=== PATIENT | male | born 1960 | race Caucasian/White ===

== ENCOUNTER 2019-09-16 07:39 | Emergency (ER) | payer BC ==
[~2019-09-16] VITALS: Ht 172.7 cm; Wt 68.0 kg
[2019-09-16 07:47] VITALS: BP_SYST 145
--- NOTE | 2019-09-16 07:52 | NUR ---
Patient to ER bed 7 to gown for evaluation. Side rails up. Report given to Henry HUYNH.
--- NOTE | 2019-09-16 08:15 | NUR ---
ER Dr. Medina at bedside examining patient.
--- NOTE | 2019-09-16 08:18 | NUR ---
Patient is awake, alert, and oriented x4. Patient is complaining of bleeding nose since this morning that will not stop. Patient reports that he clamps it and it usually stops within a few minutes. Patient presents with clamp to his nose, he denies any other problems at this time.
[2019-09-16 08:19] VITALS: BP_SYST 145
[2019-09-16 08:45] LABS: BASOPHILS # (AUTO) 0.1 K/uL (0.0-0.2); BASOPHILS % (AUTO) 1.4 % (0.0-2.0); EOSINOPHILS % (AUTO) 0.3 % (0.0-4.0); HEMATOCRIT 41.1 % (36-54); HEMOGLOBIN 13.8 g/dL (14.0-18.0); LYMPHOCYTES # (AUTO) 1.4 K/uL (1.0-5.5); LYMPHOCYTES % (AUTO) 27.4 % (20.5-51.5); MEAN CORPUSCULAR HEMOGLOBIN 35 pg (27-31); MEAN CORPUSCULAR HGB CONC 34 % (32-36); MEAN CORPUSCULAR VOLUME 104 fL (79.0-98.0); MONOCYTES # (AUTO) 0.5 K/uL (0.0-1.0); MONOCYTES % (AUTO) 9.3 % (1.7-9.3); NEUTROPHILS # (AUTO) 3.1 K/uL (1.8-7.7); NEUTROPHILS % (AUTO) 61.6 % (40.0-70.0); PLATELET COUNT (AUTO) 241 K/uL (130-430); RED BLOOD CELL COUNT(AUTO) 3.96 MIL/uL (4.2-6.2); RED CELL DISTRIBUTION WIDTH 16.2 % (9.0-15.0)
[2019-09-16] MEDS ORDERED: TRANEXAMIC ACID 1,000 MG/10 ML VIAL IV ONE (08:45)
[2019-09-16 08:59] LABS: CALCIUM 8.6 mg/dL (8.4-11.0); CREATININE 0.79 mg/dL (0.55-1.30); POTASSIUM 4.1 mmol/L (3.5-5.1)
[2019-09-16 09:10] LABS: ALBUMIN 3.7 g/dL (3.4-4.8); TOTAL BILIRUBIN 0.7 mg/dL (0.0-1.0)
--- NOTE | 2019-09-16 09:30 | NUR ---
Pharmacy called for transexemic acid. Nba notifed and stated he would put more in the pyxis.
--- NOTE | 2019-09-16 09:50 | NUR ---
Patient given written and verbal discharge instructions and verbalizes understanding. ER MD discussed with patient the results and treatment provided. Patient in stable condition. ID arm band removed. Patient educated on pain management and to follow up with PMD. Pain Scale 0/10. Opportunity for questions provided and answered. Medication side effect fact sheet provided.
== END 2019-09-16 09:50 | disposition home or self-care (01) ==
LOC: SED 07:39
DX: R04.0 Epistaxis (principal)
CPT/HCPCS: 30903; 36415; 80053; 85025; 99284; J3490

== ENCOUNTER 2021-06-17 08:31 | Inpatient (IN) | payer BC, SELFPAY ==
[~2021-06-17] VITALS: Ht 172.7 cm; Wt 61.2 kg
[2021-06-17 08:41] VITALS: BP_SYST 147
[2021-06-17] MEDS ORDERED: NACL 0.9% 1,000 ML IV ONE (09:00)
[2021-06-17] MEDS ORDERED: LORazepam 2 MG/ML VIAL IVP ONE (09:00)
--- NOTE | 2021-06-17 09:00 | NUR ---
# 20gauge angiocath placed to SANDRA. Use of asceptic technique. Opsite placed over site. Blood return noted. Blood for lab drawn from site. Flushed with 10 cc of normal saline. No evidence of infiltration noted. Patient tolerated well.
--- NOTE | 2021-06-17 09:00 | NUR ---
Patient to ER bed 6 to gown for evaluation. Side rails up. Report given to Russell
--- NOTE | 2021-06-17 09:03 | NUR ---
Radiology at bedside for CXR
--- NOTE | 2021-06-17 09:05 | NUR ---
Pt came to ER via BLS ambulance for anxiety, hallucinations, ETOH withdrawls. Pt presents tachycardic, anixious, VSS, awaiting
--- NOTE | 2021-06-17 09:10 | NUR ---
ER at bedside examining patient.
[2021-06-17 09:16] LABS: BASOPHILS % (AUTO) 0.9 % (0.0-2.0); EOSINOPHILS % (AUTO) 0.6 % (0.0-4.0); HEMATOCRIT 39.9 % (36-54); HEMOGLOBIN 13.6 g/dL (14.0-18.0); LYMPHOCYTES # (AUTO) 1.5 K/uL (1.0-5.5); LYMPHOCYTES % (AUTO) 27.7 % (20.5-51.5); MEAN CORPUSCULAR HEMOGLOBIN 37 pg (27-31); MEAN CORPUSCULAR HGB CONC 34 % (32-36); MEAN CORPUSCULAR VOLUME 108 fL (79.0-98.0); MONOCYTES # (AUTO) 0.5 K/uL (0.0-1.0); MONOCYTES % (AUTO) 8.9 % (1.7-9.3); NEUTROPHILS # (AUTO) 3.3 K/uL (1.8-7.7); NEUTROPHILS % (AUTO) 61.9 % (40.0-70.0); PLATELET COUNT (AUTO) 126 K/uL (130-430); RED BLOOD CELL COUNT(AUTO) 3.69 MIL/uL (4.2-6.2); RED CELL DISTRIBUTION WIDTH 17.1 % (9.0-15.0); WHITE BLOOD COUNT (AUTO) 5.3 K/uL (4.8-10.8)
[2021-06-17 09:21] LABS: ANION GAP 26 (5-15); CALCIUM 9.3 mg/dL (8.4-11.0); CHLORIDE 97 mmol/L (98-107); CREATININE 1.46 mg/dL (0.55-1.30); GLUCOSE 121 mg/dL (70-99); SODIUM SERUM 140 mmol/L (136-145); UREA NITROGEN, BLOOD 12 mg/dL (8-21)
[2021-06-17 09:22] LABS: GFR AFRICAN AMERICAN 63 mL/min (>90)
[2021-06-17 09:36] LABS: ALBUMIN 4.1 g/dL (3.4-4.8); ASPARTATE AMINOTRANSFERASE 94 U/L (10-37)
[2021-06-17 09:54] LABS: ALANINE AMINOTRANSFERASE 125 U/L (12-78)
[2021-06-17 10:07] LABS: ALCOHOL, BLOOD < 3 mg/dL (<10)
--- NOTE | 2021-06-17 11:00 | NUR ---
Pt eating at this time, resting
--- NOTE | 2021-06-17 11:01 | NUR ---
Notified ED Admitting to contact pt insurance regarding pt status and that per Dr. Medina pt is NOT stable for transfer and will be admitted to the multifocal button generator hospitalist per facesheet: on license of [facility] pcp not on staff
--- NOTE | 2021-06-17 11:06 | NUR ---
Jeffery assistant case manager called back to get info regarding pt. stated another assistant case manager will follow up on pt spoke to elizabeth
--- NOTE | 2021-06-17 11:11 | NUR ---
Per Dr. Medina, after speaking with the insurance Doctor regarding pt status, they both agreed on admitting pt at this facility.
[2021-06-17] MEDS: D5NS 1,000 ML IV SCH (11:15)
[2021-06-17] MEDS ORDERED: POTASSIUM CHLORIDE 20 MEQ TAB.PRT.SR PO ONE (11:15)
--- NOTE | 2021-06-17 11:24 | NUR ---
DR MULLIGAN HERE TO EVALUATE PT.
[2021-06-17] MEDS ORDERED: MUPIROCIN 2% TOPICAL OINTMENT 22 GM NS PRN (11:30)
[2021-06-17] MEDS ORDERED: NALOXONE HCL 0.4 MG/ML AMP (NARCAN) IVP PRN ×2 (11:30→19:48)
[2021-06-17] MEDS ORDERED: THIAMINE HCL 100 MG in NS 50 ML IV ONE (11:30)
[2021-06-17] MEDS ORDERED: LORazepam 2 MG/ML VIAL IVP PRN ×2 (11:30→18:15)
[2021-06-17 12:03] LABS: PROTHROMBIN TIME 10.4 SECS (9.5-12.5)
--- NOTE | 2021-06-17 15:25 | NUR ---
Unable to document on emar, as per order from Dr. Cardona, 2mg Ativan IVP q 4hrs, given at 1525. Last dose was given 06/17/2021 at 0902.
[2021-06-17] MEDS ORDERED: LORazepam 2 MG/ML VIAL ONE ×2 (15:28→17:43)
--- NOTE | 2021-06-17 16:05 | NUR ---
Pt tolerated medication, resting in gurney, VSS, pt states visual hallucinations present
--- NOTE | 2021-06-17 17:25 | NUR ---
Unable to document on EMAR, as per order from Dr. Cardona, 2mg Morphine IVP q 4hrs, given at 1725. First dose administered.
[2021-06-17] MEDS ORDERED: MORPHINE 2 MG/ML INJ. SYRINGE ONE (17:31)
--- NOTE | 2021-06-17 17:50 | NUR ---
Pt agitated and aggressive called admitting MD. Received verbal order from Dr Cardona for Ativan 2mg q3hPRN for agitation and anxiety, begin first dose now.
--- NOTE | 2021-06-17 18:26 | NUR ---
Pt resting more comfortably in [facility] at this time
[2021-06-17] MEDS ORDERED: HALOPERIDOL LACTATE 5 MG/ML VIAL IM ONE (19:00)
--- NOTE | 2021-06-17 19:06 | NUR ---
Received endorsment from day shift, AAOX3, mild combative, breathing spontaneously at room air, not in distress noted, with soft restraints 4 points at bilateral upper/lower limb noted. With ongoing IV fluid D5 NS at 150ml/hour infusing at left forearm, g20 IV cannula noted. Vital signs taken and recorded, tachycardic HR-113bpm.
[2021-06-17] MEDS ORDERED: MORPHINE 2 MG/ML INJ. SYRINGE IVP PRN ×2 (19:45→19:46)
--- NOTE | 2021-06-17 19:45 | NUR ---
Patient's code status is FULL CODE, paperwork completed and placed in chart.
[2021-06-17] MEDS ORDERED: ACETAMINOPHEN 325 MG TABLET PO PRN (19:46)
[2021-06-17] MEDS ORDERED: DOCUSATE SODIUM 100 MG CAPSULE PO PRN (19:46)
[2021-06-17] MEDS ORDERED: ZOLPIDEM TARTRATE 5 MG TABLET PO PRN (19:47)
[2021-06-17] MEDS ORDERED: ONDANSETRON HCL 4 MG/2 ML VIAL IVP PRN (19:47)
[2021-06-17] MEDS ORDERED: MAGNESIUM SULFATE 50 ML IV PRN (19:48)
[2021-06-17] MEDS ORDERED: FOLIC ACID 1 MG, THIAMINE HCL 100 MG, MAGNESIUM SULFATE 1 GM, MVI 10 ML in NACL 0.9% 1,... IV ONE (19:50)
--- NOTE | 2021-06-17 19:55 | NUR ---
Admission medication unverified status since in AM, pharmacy contacted by the charge nurse to verify.
[2021-06-17] MEDS ORDERED: MAGNESIUM SULFATE 1 GM/2 ML VIAL ONE (20:31)
[2021-06-17] MEDS ORDERED: MVI 10 ML VIAL IV ONE (20:31)
[2021-06-17] MEDS ORDERED: THIAMINE HCL 100 MG/ML VIAL ONE (20:31)
[2021-06-17] MEDS ORDERED: FOLIC ACID 5 MG/ML VIAL IV ONE (20:31)
--- NOTE | 2021-06-17 20:40 | NUR ---
Compound multivitamin IV infusion, bag unable to scan, manually input in EMR
--- NOTE | 2021-06-17 20:50 | NUR ---
Medication reconciliation not done, patient cam\nnot give details if he is taking any nmedication medication
--- NOTE | 2021-06-17 20:52 | NUR ---
Transfer to TElemetry 104A via ACLS protocol. Licensed nurse present. IV present no signs or symptoms of infiltration.
[2021-06-17] MEDS ORDERED: HEPARIN SODIUM,PORCINE 5,000 UNITS/ML VIAL SUBCUT SCH (21:00)
--- NOTE | 2021-06-17 21:15 | NUR ---
Endorsed to AMINA Flowers in stable condition for continuity of care
[2021-06-17 21:20] VITALS: BP_SYST 121
--- NOTE | 2021-06-17 21:20 | NUR ---
ROUNDS PATIENT IN BED, LETHARGIC, AROUSABLE TO NAME, NOT IN DISTRESS, VITALS STABLE. ASSESSMENT DONE AND DOCUMENTED. SEE FLOWSHEET. PATIENT ON BILATERAL SOFT WRIST RESTRAINTS, WITH GOOD PULSES. NEEDS ATTENDED TO. SAFETY AND FALL MEASURES IN PLACED. BED IN LOW AND LOCKED POSITION. CALL LIGHT PLACED WITHIN REACH.
[2021-06-17] MEDS: chlordiazePOXIDE HCL 25 MG CAPSULE PO SCH (23:56)
--- NOTE | 2021-06-18 00:13 | NUR ---
PATIENT RESTING: Patient resting quietly. No acute distress noted. Vital signs within normal range.
[2021-06-18] MEDS: D5NS 1,000 ML IV SCH ×5 (00:35→21:33)
[2021-06-18 01:31] VITALS: BP_SYST 127
[2021-06-18] MEDS: chlordiazePOXIDE HCL 25 MG CAPSULE PO SCH ×4 (05:50→23:29)
--- NOTE | 2021-06-18 05:59 | NUR ---
CONSULT REASON FOR CONSULT: ALCOHOL DEP PERSON I SPOKE WITH: CANDIDO CONSULTING PHYSICIAN: DR. HUMPHREYS DIRECTOR BUSINESS DEVELOPMENT PHONE NUMBER: [phone] ORDERING PHYSICIAN: DR. MULLIGAN
--- NOTE | 2021-06-18 06:33 | NUR ---
ATTENDING MD DR MULLIGAN WAS CALLED DIRECTLY, RE: DIET ORDER.
--- NOTE | 2021-06-18 06:37 | NUR ---
CLOSING NOTES PATIENT STILL ASLEEP, VITALS STABLE, NO SIGNS OF ANY PAIN AT THIS TIME. ALL NEEDS ATTENDED TO. SAFETY MEASURES MAINTAINED. CALL LIGHT PLACED WITHIN REACH.
[2021-06-18 07:05] LABS: BASOPHILS % (AUTO) 0.9 % (0.0-2.0); EOSINOPHILS # (AUTO) 0.1 K/uL (0.0-0.4); EOSINOPHILS % (AUTO) 3.2 % (0.0-4.0); HEMATOCRIT 34.8 % (36-54); HEMOGLOBIN 11.9 g/dL (14.0-18.0); LYMPHOCYTES # (AUTO) 1.2 K/uL (1.0-5.5); LYMPHOCYTES % (AUTO) 28.3 % (20.5-51.5); MEAN CORPUSCULAR HEMOGLOBIN 37 pg (27-31); MEAN CORPUSCULAR HGB CONC 34 % (32-36); MEAN CORPUSCULAR VOLUME 108 fL (79.0-98.0); MONOCYTES # (AUTO) 0.4 K/uL (0.0-1.0); MONOCYTES % (AUTO) 9.4 % (1.7-9.3); NEUTROPHILS # (AUTO) 2.5 K/uL (1.8-7.7); NEUTROPHILS % (AUTO) 58.2 % (40.0-70.0); PLATELET COUNT (AUTO) 101 K/uL (130-430); RED BLOOD CELL COUNT(AUTO) 3.21 MIL/uL (4.2-6.2); WHITE BLOOD COUNT (AUTO) 4.3 K/uL (4.8-10.8)
[2021-06-18 07:22] LABS: ALBUMIN 3.2 g/dL (3.4-4.8); BILIRUBIN,DIRECT 0.4 mg/dL (0.0-0.3); CALCIUM 7.7 mg/dL (8.4-11.0); CREATININE 0.65 mg/dL (0.55-1.30); TOTAL BILIRUBIN 1.4 mg/dL (0.0-1.0)
--- NOTE | 2021-06-18 07:50 | NUR ---
OPENING NOTE Patient is resting in bed A&O x4, no complain of pain or discomfort, no signs or symptoms of respiratory distress. Patient is currently on restraints, will update MD on patients current status for possible D/C of restraints. Educated patient applications scientist light system and plan of care, patient verbalized understanding. bed is in lowest position call light within reach, fall and aspiration precautions are in place, will continue to monitor.
[2021-06-18 07:57] LABS: RED CELL DISTRIBUTION WIDTH 16.7 % (9.0-15.0)
[2021-06-18 08:08] VITALS: BP_SYST 139
[2021-06-18 08:21] LABS: POTASSIUM 2.9 mmol/L (3.5-5.1)
[2021-06-18] MEDS: POTASSIUM CHLORIDE 20 MEQ TAB.PRT.SR PO PRN (08:41)
--- NOTE | 2021-06-18 10:00 | NUR ---
RN note spoke with MD regarding patients current status, MD is OK with restraints being D/C'd. Will continue to monitor patient.
--- NOTE | 2021-06-18 10:36 | NUR ---
Nutrition Update Aime Scale 17 noted. Pt admitted for delirium tremors. Diet: regular BMI: 20.6 kg/m2 RD to follow per nutrition care standards.
--- NOTE | 2021-06-18 10:43 | NUR ---
MAMADOU note: updated clinicals to MAMADOU Vega /[facility] tel # [phone], fax # [phone]. Per Silvia, no transfer to [facility] work today but will continue to reevaluate. She provided inpatient psych facility if needed. [phone], fax # [phone].
[2021-06-18 11:18] VITALS: BP_SYST 125
--- NOTE | 2021-06-18 14:34 | NUR ---
RN note Patient able to ambulate to the restroom independently, steady gait.
[2021-06-18 16:19] VITALS: BP_SYST 130
--- NOTE | 2021-06-18 18:02 | NUR ---
Dietitian Recommendations * Recommend: continue regular diet. * Encourage continue good PO intake. LP, RD Please refer to Nutrition Assessment for details. Addendum: 06/18/21 at 1803 by Tono CASTELLANOS Amended: Links added.
--- NOTE | 2021-06-18 18:16 | NUR ---
CLOSING NOTE Patient is resting in bed A&O x4, no complain of pain or discomfort, no signs or symptoms of respiratory distress. IV is infusing no sign or symptoms of infiltration. All needs were met bed is in lowest position call light within reach, fall and aspiration precautions are in place, will endorse report to night time babysitter.
--- NOTE | 2021-06-18 19:30 | NUR ---
Opening notes Received report. Patient is resting in bed, no signs of distress noted. Breathing even and unlabored on room air. Tremors noted. IVF infusing well. No needs at this time. call light with the patient. Safety precautions in place.
[2021-06-18 20:00] VITALS: BP_SYST 131
[2021-06-18] MEDS ORDERED: chlordiazePOXIDE HCL 10 MG CAPSULE ONE (23:31)
[2021-06-19] VITALS: BP_SYST 165
--- NOTE | 2021-06-19 02:00 | NUR ---
RN rounds Patient able to walk to bathroom with minimal assistance. Standby assist. Patient has tremors. No needs at this time. Call light with the patient. safety precautions in place.
[2021-06-19] MEDS: D5NS 1,000 ML IV SCH ×2 (04:15→09:04)
[2021-06-19] MEDS: chlordiazePOXIDE HCL 25 MG CAPSULE PO SCH (05:57)
[2021-06-19] MEDS ORDERED: chlordiazePOXIDE HCL 10 MG CAPSULE ONE (05:58)
--- NOTE | 2021-06-19 06:26 | NUR ---
Closing notes Patient is resting in bed, no signs of distress noted. Breathing even and unlabored on room air. Patient still with tremors. IVF infusing well. All needs met throughout the shift. Call light with the patient. Safety precautions in place.
[2021-06-19 07:41] VITALS: BP_SYST 137
[2021-06-19 07:51] LABS: BASOPHILS % (AUTO) 0.8 % (0.0-2.0); EOSINOPHILS # (AUTO) 0.1 K/uL (0.0-0.4); EOSINOPHILS % (AUTO) 2.6 % (0.0-4.0); HEMATOCRIT 33.9 % (36-54); HEMOGLOBIN 11.7 g/dL (14.0-18.0); LYMPHOCYTES # (AUTO) 1.6 K/uL (1.0-5.5); MEAN CORPUSCULAR HEMOGLOBIN 38 pg (27-31); MEAN CORPUSCULAR HGB CONC 35 % (32-36); MEAN CORPUSCULAR VOLUME 109 fL (79.0-98.0); MONOCYTES # (AUTO) 0.5 K/uL (0.0-1.0); MONOCYTES % (AUTO) 8.9 % (1.7-9.3); NEUTROPHILS # (AUTO) 3.2 K/uL (1.8-7.7); NEUTROPHILS % (AUTO) 58.7 % (40.0-70.0); PLATELET COUNT (AUTO) 103 K/uL (130-430); RED BLOOD CELL COUNT(AUTO) 3.12 MIL/uL (4.2-6.2); RED CELL DISTRIBUTION WIDTH 16.7 % (9.0-15.0); WHITE BLOOD COUNT (AUTO) 5.4 K/uL (4.8-10.8)
--- NOTE | 2021-06-19 08:00 | NUR ---
OPENING NOTES PATIENT AAO X 4. LUNGS CLEAR. ABDOMEN SOFT AND NON DISTENDED. HAS IV ACCESS ON THE LEFT FOREARM #20 NS AT 150CC/HR INFUSING ON WELL. HAS OPTIFOAM DRESSING ON LEFT HAND WITH SKIN TEAR. BED LOW POSITION, ALARMED AND LOCKED. CALL LIGHTS WITHIN REACH. WILL CONTINUE TO MONITOR PATIENTS STATUS.
[2021-06-19 08:21] LABS: CALCIUM 8.4 mg/dL (8.4-11.0); CREATININE 0.68 mg/dL (0.55-1.30)
[2021-06-19 08:38] LABS: POTASSIUM 2.9 mmol/L (3.5-5.1)
[2021-06-19] MEDS: POTASSIUM CHLORIDE 20 MEQ TAB.PRT.SR PO PRN (08:51)
--- NOTE | 2021-06-19 08:53 | NUR ---
POTASSIUM 40 MEQ TABLET GIVEN. K LEVEL 2.9. MAGNESIUM LEVEL 1.3 MAGNESIUM IV GIVEN.
[2021-06-19] MEDS ORDERED: POTASSIUM CHLORIDE 20 MEQ TAB.PRT.SR PO ONE (09:00)
[2021-06-19] MEDS ORDERED: MAGNESIUM OXIDE 400 MG TABLET PO ONE (09:00)
--- NOTE | 2021-06-19 11:00 | NUR ---
PATIENT REFUSED TO CHANGED THE DRESSING ON THE LEFT HAND FOR THE SKIN TEAR. NO PHOTO TAKEN.
[2021-06-19 11:46] VITALS: BP_SYST 137
[2021-06-19] MEDS ORDERED: chlordiazePOXIDE HCL 10 MG CAPSULE PO SCH (12:00)
[2021-06-19] MEDS ORDERED: LIB25 PO (12:33)
[2021-06-19 12:45] VITALS: BP_SYST 137
--- NOTE | 2021-06-19 14:15 | NUR ---
PATIENT LEFT IN STABLE CONDITION. [facility] I D BAND REMOVED. AND IV ACCESS REMOVED. DISCHARGE INSTRUCTION GIVEN FOR FOLLOW UP IN [facility], AFTER HOME WILL GO THE REHAB CENTER. FOLLOW UP WITH PRIMARY MD IN ONE TO TWO WEEKS. PRESCRIPTION GIVEN TO THE PATIENT TO PICK AT [employer]. LIBRIUM TABLET INDICATION, SIDE EFFECTS, DOSAGE AND FREQUENCY. 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 NO COMPLAINED MADE SO FAR. ONLY BELONGING HE HAS CELLPHONE, NO AUTOMOBILE LIGHTS ASSEMBLER, HAS ORANGE HAT AND TSHIRT AND PANTS.
[2021-06-19 18:26] VITALS: BP_SYST 136
--- NOTE | 2021-06-20 10:34 | NUR ---
Disposition 01
== END 2021-06-19 14:15 | disposition home or self-care (01) | DRG 896 ==
LOC: SED 08:31 → STU 11:06
PROVIDERS: ADMIT General Practice; ATTEND General Practice
DX: F10.231 Alcohol dependence with withdrawal delirium (principal); N17.0 Acute kidney failure with tubular necrosis; R65.10 Systemic inflammatory response syndrome (SIRS) of non-infectious origin without acute organ dysfunction; E87.6 Hypokalemia; Z20.822 Contact with and (suspected) exposure to COVID-19; R74.01 Elevation of levels of liver transaminase levels; D69.6 Thrombocytopenia, unspecified; K76.0 Fatty (change of) liver, not elsewhere classified; Z71.41 Alcohol abuse counseling and surveillance of alcoholic; Z90.49 Acquired absence of other specified parts of digestive tract
CPT/HCPCS: 36415; 70450-TC; 71045; 76376; 76700-TC; 80048; 80053; 80076; 83036; 83735; 84484; 85025; 85610-TC; 93005; 96361; 96365; 96366; 96372; 96375; 99291; 99292; G0378; G0482; J1630; J2060; J2270; J3411; J3475; J3490

== ENCOUNTER 2021-10-05 08:24 | Emergency (ER) | payer BC, SELFPAY ==
[~2021-10-05] VITALS: Ht 172.7 cm; Wt 65.8 kg
[~2021-10-05 08:24] MED LIST: LIB25 PO
--- NOTE | 2021-10-05 08:55 | NUR ---
Patient to ER bed 1 to gown for evaluation. Side rails up. Report given to TAWNYA HUYNH.
--- NOTE | 2021-10-05 08:56 | NUR ---
ER at bedside examining patient.
[2021-10-05] MEDS ORDERED: NACL 0.9% 1,000 ML IV ONE (09:00)
[2021-10-05] MEDS ORDERED: LORazepam 2 MG/ML VIAL IVP ONE (09:00)
[2021-10-05] MEDS ORDERED: ONDANSETRON HCL 4 MG/2 ML VIAL IVP ONE (09:00)
--- NOTE | 2021-10-05 09:00 | NUR ---
# 20 gauge angiocath placed to LFA. Use of asceptic technique. Opsite placed over site. Blood return noted. Blood for lab drawn from site. Flushed with 10 cc of normal saline. No evidence of infiltration noted. Patient tolerated well.
--- NOTE | 2021-10-05 09:04 | NUR ---
PT BIBA AMBULANCE FROM HOME C/O NAUSEA AND SHAKING. PT STATES HE HAS BEEN DRINKING TOO MUCH ALCOHOL OVER THE LAST FEW MONTHS. STATES HE DRINKS 10 SHOTS OF VODKA PER DAY. PRESENTS TREMULOUS AND FLUSHED. AAOX4, HYPERTENSIVE 162/102 PULSE 102, OTHER V/S STABLE. DENIES PAIN.
[2021-10-05 09:17] LABS: BASOPHILS # (AUTO) 0.1 K/uL (0.0-0.2); BASOPHILS % (AUTO) 1.8 % (0.0-2.0); EOSINOPHILS % (AUTO) 0.2 % (0.0-4.0); HEMATOCRIT 38.7 % (36-54); HEMOGLOBIN 13.3 g/dL (14.0-18.0); LYMPHOCYTES # (AUTO) 1.1 K/uL (1.0-5.5); LYMPHOCYTES % (AUTO) 23.4 % (20.5-51.5); MEAN CORPUSCULAR HEMOGLOBIN 32 pg (27-31); MEAN CORPUSCULAR HGB CONC 34 % (32-36); MEAN CORPUSCULAR VOLUME 94 fL (79.0-98.0); MONOCYTES # (AUTO) 0.5 K/uL (0.0-1.0); MONOCYTES % (AUTO) 9.8 % (1.7-9.3); NEUTROPHILS # (AUTO) 3.1 K/uL (1.8-7.7); NEUTROPHILS % (AUTO) 64.8 % (40.0-70.0); PLATELET COUNT (AUTO) 158 K/uL (130-430); RED BLOOD CELL COUNT(AUTO) 4.13 MIL/uL (4.2-6.2); RED CELL DISTRIBUTION WIDTH 16.7 % (9.0-15.0); WHITE BLOOD COUNT (AUTO) 4.7 K/uL (4.8-10.8)
[2021-10-05 09:28] LABS: ANION GAP 15 (5-15); CALCIUM 9.1 mg/dL (8.4-11.0); CHLORIDE 96 mmol/L (98-107); CREATININE 1.11 mg/dL (0.55-1.30); GLUCOSE 132 mg/dL (70-99); POTASSIUM 3.6 mmol/L (3.5-5.1); SODIUM SERUM 134 mmol/L (136-145); UREA NITROGEN, BLOOD 13 mg/dL (8-21)
[2021-10-05 09:29] LABS: GFR AFRICAN AMERICAN 86 mL/min (>90)
[2021-10-05 09:34] LABS: ALANINE AMINOTRANSFERASE 227 U/L (12-78); ALBUMIN 3.9 g/dL (3.4-4.8); ASPARTATE AMINOTRANSFERASE 180 U/L (10-37); TOTAL BILIRUBIN 0.7 mg/dL (0.0-1.0)
[2021-10-05 09:35] LABS: ALCOHOL, BLOOD < 3 mg/dL (<10)
--- NOTE | 2021-10-05 09:50 | NUR ---
PT RESTING IN BED, EASILY ARROUSABLE, EVEN UNLABORED BREATHING, NO DISTRESS NOTED.
[2021-10-05] MEDS ORDERED: LORA-259 PO (10:09)
[2021-10-05 10:17] VITALS: BP_SYST 136
--- NOTE | 2021-10-05 10:18 | NUR ---
Patient given written and verbal discharge instructions and verbalizes understanding. ER MD discussed with patient the results and treatment provided. Patient in stable condition. ID arm band removed. IV catheter removed intact and dressing applied, no active bleeding. Rx of ATIVAN given. Patient educated on pain management and to follow up with PMD. Pain Scale 0/10. Opportunity for questions provided and answered. Medication side effect fact sheet provided.
== END 2021-10-05 10:17 | disposition home or self-care (01) ==
LOC: SED 08:24
DX: F10.239 Alcohol dependence with withdrawal, unspecified (principal); Z79.899 Other long term (current) drug therapy; Y90.0 Blood alcohol level of less than 20 mg/100 ml
CPT/HCPCS: 36415; 80053; 85025; 96361; 96374; 96375; 99284; G0482; J2060; J2405; J7030

== ENCOUNTER → 2021-12-09 | Emergency (ER) | payer BC ==
[~2021-12-09] MED LIST changes: +FOLIC ACID 1 MG, THIAMINE HCL 100 MG, MAGNESIUM SULFATE 1 GM, MVI 10 ML in NACL 0.9% 1,... IV ONE; +FOLIC ACID 5 MG/ML VIAL IV ONE; +LORA-259 PO; +MAGNESIUM SULFATE 1 GM/2 ML VIAL ONE; +MVI 10 ML VIAL IV ONE; +NACL 0.9% 1,000 ML IV ONE; +ONDANSETRON HCL 4 MG/2 ML VIAL IVP ONE; +ONDANSETRON HCL 4 MG/2 ML VIAL ONE; +THIAMINE HCL 100 MG/ML VIAL ONE; +chlordiazePOXIDE HCL 25 MG CAPSULE PO ONE
[2021-12-09 22:45] VITALS: BP_SYST 141
--- NOTE | 2021-12-10 02:30 | NUR ---
Patient to ER bed hw 1 to gown for evaluation. Side rails up. Report given to gabriele. # 20 gauge angiocath placed to left forearm. Use of asceptic technique. Opsite placed over site. Blood return noted. Flushed with 10 cc of normal saline. No evidence of infiltration noted. Patient tolerated well.
--- NOTE | 2021-12-10 02:35 | NUR ---
patient w/ x1 episode of n/v and noted hr of 133, medicated w/ x1 liter ns bolus and zofran 4mg ivp. Positioned patient for comfort. bed to low position sr up, continue to monitor.
--- NOTE | 2021-12-10 03:30 | NUR ---
patient started on iv "banaa bag" along w/ librium po. will observe patient for any adverse reaction. Bed to low position sr up, continue to monitor.
[2021-12-10 04:44] LABS: BASOPHILS # (AUTO) 0.1 K/uL (0.0-0.2); BASOPHILS % (AUTO) 1.5 % (0.0-2.0); EOSINOPHILS % (AUTO) 0.2 % (0.0-4.0); HEMATOCRIT 39.2 % (36-54); LYMPHOCYTES # (AUTO) 0.8 K/uL (1.0-5.5); LYMPHOCYTES % (AUTO) 19.5 % (20.5-51.5); MEAN CORPUSCULAR HEMOGLOBIN 36 pg (27-31); MEAN CORPUSCULAR HGB CONC 33 % (32-36); MEAN CORPUSCULAR VOLUME 107 fL (79.0-98.0); MONOCYTES # (AUTO) 0.5 K/uL (0.0-1.0); MONOCYTES % (AUTO) 12.6 % (1.7-9.3); NEUTROPHILS # (AUTO) 2.6 K/uL (1.8-7.7); NEUTROPHILS % (AUTO) 66.2 % (40.0-70.0); PLATELET COUNT (AUTO) 198 K/uL (130-430); RED BLOOD CELL COUNT(AUTO) 3.66 MIL/uL (4.2-6.2); RED CELL DISTRIBUTION WIDTH 15.1 % (9.0-15.0); WHITE BLOOD COUNT (AUTO) 3.9 K/uL (4.8-10.8)
[2021-12-10 04:45] LABS: CALCIUM 7.2 mg/dL (8.4-11.0); CREATININE 0.78 mg/dL (0.55-1.30); POTASSIUM 4.3 mmol/L (3.5-5.1)
[2021-12-10 04:48] LABS: PROTHROMBIN TIME 9.8 SECS (9.5-12.5)
[2021-12-10 04:50] LABS: ALBUMIN 3.5 g/dL (3.4-4.8); TOTAL BILIRUBIN 0.5 mg/dL (0.0-1.0)
[2021-12-10 06:44] VITALS: BP_SYST 146
--- NOTE | 2021-12-10 06:44 | NUR ---
patient medicated as ordered w/ librium 25mg. Patient given written and verbal discharge instructions and verbalizes understanding. ER MD discussed with patient the results and treatment provided. Patient in stable condition. ID arm band removed. IV catheter removed intact and dressing applied, no active bleeding. Rx of libruim given. Patient educated on pain management and to follow up with PMD. Pain Scale 0. Opportunity for questions provided and answered. Medication side effect fact sheet provided. ambulated from gurney to wheelchair and from wheelchair into passenger seat without difficulty.
== END | disposition home or self-care (01) ==
LOC: SED 22:26
DX: R51.9 Headache, unspecified (principal); F10.239 Alcohol dependence with withdrawal, unspecified; Z79.899 Other long term (current) drug therapy; Y90.7 Blood alcohol level of 200-239 mg/100 ml
CPT/HCPCS: 36415; 80053; 85025; 85610; 96361; 96365; 96366; 96375; 99284; G0482; J7030; J2405; J3411; J3475; J3490

== ENCOUNTER 2022-05-10 10:56 | Inpatient (IN) | payer BC ==
[~2022-05-10] VITALS: Ht 172.7 cm; Wt 61.7 kg
[~2022-05-10 10:56] MED LIST changes: -FOLIC ACID 1 MG, THIAMINE HCL 100 MG, MAGNESIUM SULFATE 1 GM, MVI 10 ML in NACL 0.9% 1,... IV ONE; -FOLIC ACID 5 MG/ML VIAL IV ONE; -MAGNESIUM SULFATE 1 GM/2 ML VIAL ONE; -MVI 10 ML VIAL IV ONE; -NACL 0.9% 1,000 ML IV ONE; -ONDANSETRON HCL 4 MG/2 ML VIAL IVP ONE; -ONDANSETRON HCL 4 MG/2 ML VIAL ONE; -THIAMINE HCL 100 MG/ML VIAL ONE; -chlordiazePOXIDE HCL 25 MG CAPSULE PO ONE
[2022-05-10 10:59] VITALS: BP_SYST 135
[2022-05-10] MEDS ORDERED: MORPHINE 4 MG INJ. 4 MG/ML VIAL IM ONE (11:15)
[2022-05-10 13:11] LABS: BASOPHILS # (AUTO) 0.1 K/uL (0.0-0.2); BASOPHILS % (AUTO) 0.7 % (0.0-2.0); EOSINOPHILS % (AUTO) 0.4 % (0.0-4.0); HEMATOCRIT 38.2 % (36-54); HEMOGLOBIN 13.3 g/dL (14.0-18.0); LYMPHOCYTES # (AUTO) 1.2 K/uL (1.0-5.5); LYMPHOCYTES % (AUTO) 16.3 % (20.5-51.5); MEAN CORPUSCULAR HEMOGLOBIN 35 pg (27-31); MEAN CORPUSCULAR HGB CONC 35 % (32-36); MEAN CORPUSCULAR VOLUME 99 fL (79.0-98.0); MONOCYTES # (AUTO) 0.5 K/uL (0.0-1.0); MONOCYTES % (AUTO) 7.4 % (1.7-9.3); NEUTROPHILS # (AUTO) 5.4 K/uL (1.8-7.7); NEUTROPHILS % (AUTO) 75.2 % (40.0-70.0); PLATELET COUNT (AUTO) 118 K/uL (130-430); RED BLOOD CELL COUNT(AUTO) 3.85 MIL/uL (4.2-6.2); RED CELL DISTRIBUTION WIDTH 19.5 % (9.0-15.0); WHITE BLOOD COUNT (AUTO) 7.2 K/uL (4.8-10.8)
[2022-05-10] MEDS ORDERED: MORPHINE 4 MG INJ. 4 MG/ML VIAL IVP ONE (13:15)
[2022-05-10 13:25] LABS: CALCIUM 8.9 mg/dL (8.4-11.0); CREATININE 0.98 mg/dL (0.55-1.30); POTASSIUM 4.2 mmol/L (3.5-5.1)
[2022-05-10 13:29] LABS: ALBUMIN 3.7 g/dL (3.4-4.8); TOTAL BILIRUBIN 1.1 mg/dL (0.0-1.0)
[2022-05-10 13:40] LABS: INR 0.9 (0.80-1.20); PROTHROMBIN TIME 9.9 SECS (9.5-12.5)
[2022-05-10] MEDS ORDERED: MORPHINE 4 MG INJ. 4 MG/ML VIAL IVP PRN (15:15)
[2022-05-10] MEDS ORDERED: ACETAMINOPHEN 500 MG TABLET PO PRN ×2 (15:15→15:30)
[2022-05-10] MEDS: ONDANSETRON HCL 4 MG/2 ML VIAL IVP PRN ×2 (16:03→23:25)
[2022-05-10 18:39] VITALS: BP_SYST 135
[2022-05-10 19:00] VITALS: BP_SYST 142
[2022-05-10 20:00] VITALS: BP_SYST 142; BP_SYST 143
[2022-05-10] MEDS: KETOROLAC TROMETHAMINE 15 MG VIAL IVP PRN (20:16)
[2022-05-10] MEDS ORDERED: NALOXONE HCL 0.4 MG/ML AMP (NARCAN) IVP PRN (21:45)
[2022-05-10] MEDS ORDERED: traZODone HCL 50 MG TABLET (DESYREL) PO PRN (21:45)
[2022-05-10] MEDS ORDERED: HYDROmorphone 1 MG/ML INJ. CARTRIDGE ONE (21:53)
[2022-05-11 00:16] VITALS: BP_SYST 133
[2022-05-11] MEDS: HYDROmorphone 1 MG/ML INJ. CARTRIDGE IVP PRN ×4 (03:34→20:24)
[2022-05-11] MEDS: KETOROLAC TROMETHAMINE 15 MG VIAL IVP PRN ×3 (05:11→18:11)
[2022-05-11 08:00] VITALS: BP_SYST 126
[2022-05-11] MEDS: ENOXAPARIN SODIUM 40 MG/0.4 ML SYRINGE SUBCUT SCH (10:40)
[2022-05-11 11:38] VITALS: BP_SYST 117
[2022-05-11 11:55] LABS: BILIRUBIN,URINE 2+ (NEGATIVE); BLOOD, URINE 3+ (NEGATIVE); CLARITY/URINE CLEAR (CLEAR); COLOR,URINE YELLOW (YELLOW); GLUCOSE,URINE NEGATIVE (NEGATIVE); KETONES,URINE TRACE (NEGATIVE); LEUKOCYTE ESTERASE ,URINE NEGATIVE (NEGATIVE); NITRITE, URINE POSITIVE (NEGATIVE); PROTEIN URINE 1+ (NEGATIVE)
[2022-05-11 12:20] LABS: BACTERIA,URINE MODERATE /HPF (None Seen); MUCUS,URINE 1+ /LPF (None Seen)
[2022-05-11 15:37] VITALS: BP_SYST 127
[2022-05-11 19:00] VITALS: BP_SYST 136
[2022-05-11 20:00] VITALS: BP_SYST 136
[2022-05-11] MEDS: D5/0.45 NS 1,000 ML IV SCH (21:40)
[2022-05-12 00:14] VITALS: BP_SYST 128
[2022-05-12] MEDS: HYDROmorphone 1 MG/ML INJ. CARTRIDGE IVP PRN ×3 (00:16→08:36)
[2022-05-12] MEDS: KETOROLAC TROMETHAMINE 15 MG VIAL IVP PRN ×2 (07:01→13:35)
[2022-05-12 08:00] VITALS: BP_SYST 122
[2022-05-12] MEDS: ENOXAPARIN SODIUM 40 MG/0.4 ML SYRINGE SUBCUT SCH (08:19)
[2022-05-12 12:49] VITALS: BP_SYST 149
[2022-05-12] MEDS: D5/0.45 NS 1,000 ML IV SCH (13:39)
[2022-05-12] MEDS ORDERED: KETOROLAC TROMETHAMINE 30 MG VIAL ONE (14:05)
[2022-05-12] MEDS ORDERED: SEVOFLURANE 15 MIN GAS INH ONE (14:05)
[2022-05-12] MEDS ORDERED: ePHEDrine sulfate 50 MG/ML VIAL ONE (14:05)
[2022-05-12] MEDS ORDERED: HYDROmorphone 2 MG/ML VIAL ONE (14:05)
[2022-05-12] MEDS ORDERED: NS IRRIG SOLN 1000 ML IR ONE (14:05)
[2022-05-12] MEDS ORDERED: LR 1,000 ML IV.SOLN IV ONE (14:05)
[2022-05-12] MEDS ORDERED: NEOSTIGMINE METHYLSULFATE 1 MG/ML, 10 ML VIAL ONE (14:05)
[2022-05-12] MEDS ORDERED: DEXAMETHASONE SOD PHOSPHATE 4 MG/ML VIAL ONE (14:05)
[2022-05-12] MEDS ORDERED: CEFAZOLIN 2 GM IVPB PREMIX 50 ML IV ONE (14:05)
[2022-05-12] MEDS ORDERED: GLYCOPYRROLATE 0.2 MG/ML VIAL ONE (14:05)
[2022-05-12] MEDS ORDERED: MIDAZOLAM HCL 2 MG/2 ML VIAL (VERSED) ONE (14:05)
[2022-05-12] MEDS ORDERED: PROPOFOL 200MG/ 20ML VIAL (DIPRIVAN) IV ONE (14:05)
[2022-05-12] MEDS ORDERED: ONDANSETRON HCL 4 MG/2 ML VIAL ONE (14:05)
[2022-05-12] MEDS ORDERED: ROCURONIUM BROMIDE 10 MG/ML (ZEMURON) ONE (14:05)
[2022-05-12] MEDS ORDERED: BUPIVACAINE /EPINEPHRINE/PF 0.25% 30 ML VIAL INJ ONE (14:05)
[2022-05-12] MEDS ORDERED: NALOXONE HCL 0.4 MG/ML AMP (NARCAN) IVP PRN ×2 (17:00)
[2022-05-12] MEDS ORDERED: HYDROmorphone 1 MG/ML INJ. CARTRIDGE IVP PRN ×2 (17:00)
[2022-05-12] MEDS ORDERED: MEPERIDINE HCL/PF 25 MG/ML DISP.SYRIN IVP PRN (17:00)
[2022-05-12] MEDS ORDERED: METOCLOPRAMIDE HCL 10 MG/2 ML VIAL IVP PRN (17:00)
[2022-05-12] MEDS ORDERED: ONDANSETRON HCL 4 MG/2 ML VIAL IVP PRN (17:00)
[2022-05-12] MEDS ORDERED: MIDAZOLAM HCL 5 MG/5 ML VIAL IVP PRN (17:00)
[2022-05-12] MEDS ORDERED: ONDANSETRON 4 MG ODT TAB PO PRN (17:15)
[2022-05-12 17:30] VITALS: BP_SYST 128
[2022-05-12 20:00] VITALS: BP_SYST 109
[2022-05-12] MEDS: CEFAZOLIN 1 GM IVPB PREMIX 50 ML IV SCH (21:28)
[2022-05-12] MEDS: DOCUSATE SODIUM 100 MG CAPSULE PO SCH (21:28)
[2022-05-13] VITALS: BP_SYST 119
[2022-05-13] MEDS: D5/0.45 NS 1,000 ML IV SCH ×2 (00:23→13:15)
[2022-05-13] MEDS: CEFAZOLIN 1 GM IVPB PREMIX 50 ML IV SCH (06:02)
[2022-05-13 07:42] LABS: HEMATOCRIT 34.1 % (36-54); HEMOGLOBIN 11.8 g/dL (14.0-18.0)
[2022-05-13 08:00] VITALS: BP_SYST 124
[2022-05-13 08:13] LABS: CALCIUM 7.9 mg/dL (8.4-11.0); CREATININE 0.92 mg/dL (0.55-1.30); POTASSIUM 3.6 mmol/L (3.5-5.1)
[2022-05-13] MEDS ORDERED: ENOXAPARIN SODIUM 40 MG/0.4 ML SYRINGE SUBCUT SCH (09:00)
[2022-05-13] MEDS: ENOXAPARIN SODIUM 40 MG/0.4 ML SYRINGE SUBCUT SCH (09:55)
[2022-05-13] MEDS: DOCUSATE SODIUM 100 MG CAPSULE PO SCH ×2 (09:56→20:10)
[2022-05-13] MEDS: KETOROLAC TROMETHAMINE 15 MG VIAL IVP PRN ×2 (09:56→18:36)
[2022-05-13] MEDS: VITAMIN B COMPLEX WITH C TAB/CAP PO SCH (10:02)
[2022-05-13 12:00] VITALS: BP_SYST 132
[2022-05-13] MEDS: HYDROmorphone 1 MG/ML INJ. CARTRIDGE IVP PRN ×2 (14:54→21:39)
[2022-05-13 16:00] VITALS: BP_SYST 125
[2022-05-13 19:45] VITALS: BP_SYST 137
[2022-05-14] MEDS: D5/0.45 NS 1,000 ML IV SCH ×2 (01:39→18:12)
[2022-05-14 01:47] VITALS: BP_SYST 124
[2022-05-14] MEDS: HYDROmorphone 1 MG/ML INJ. CARTRIDGE IVP PRN ×3 (05:35→20:54)
[2022-05-14 08:00] VITALS: BP_SYST 134
[2022-05-14] MEDS: VITAMIN B COMPLEX WITH C TAB/CAP PO SCH (09:13)
[2022-05-14] MEDS: DOCUSATE SODIUM 100 MG CAPSULE PO SCH ×2 (09:13→20:55)
[2022-05-14] MEDS: ENOXAPARIN SODIUM 40 MG/0.4 ML SYRINGE SUBCUT SCH (09:14)
[2022-05-14 12:36] VITALS: BP_SYST 127
[2022-05-14] MEDS ORDERED: ALLO300T2 PO (14:18)
[2022-05-14] MEDS ORDERED: LORazepam 1 MG TABLET PO PRN (14:30)
[2022-05-14] MEDS ORDERED: ALLOPURINOL 300 MG TABLET (ZYLOPRIM) PO ONE (15:00)
[2022-05-14 16:57] VITALS: BP_SYST 123
[2022-05-14 19:50] VITALS: BP_SYST 130
[2022-05-15] MEDS: KETOROLAC TROMETHAMINE 15 MG VIAL IVP PRN ×3 (02:13→18:21)
[2022-05-15 02:17] VITALS: BP_SYST 127
[2022-05-15] MEDS: HYDROmorphone 1 MG/ML INJ. CARTRIDGE IVP PRN ×4 (04:37→21:48)
[2022-05-15] MEDS: D5/0.45 NS 1,000 ML IV SCH ×2 (04:39→18:25)
[2022-05-15 08:24] VITALS: BP_SYST 146
[2022-05-15] MEDS: DOCUSATE SODIUM 100 MG CAPSULE PO SCH ×2 (10:22→21:36)
[2022-05-15] MEDS: VITAMIN B COMPLEX WITH C TAB/CAP PO SCH (10:23)
[2022-05-15] MEDS: ENOXAPARIN SODIUM 40 MG/0.4 ML SYRINGE SUBCUT SCH (10:27)
[2022-05-15] MEDS: ALLOPURINOL 300 MG TABLET (ZYLOPRIM) PO SCH (10:39)
[2022-05-15 11:57] VITALS: BP_SYST 144
[2022-05-15 16:20] VITALS: BP_SYST 129
[2022-05-15 19:50] VITALS: BP_SYST 141
[2022-05-16] VITALS: BP_SYST 121
[2022-05-16] MEDS: HYDROmorphone 1 MG/ML INJ. CARTRIDGE IVP PRN ×3 (04:19→16:28)
[2022-05-16 07:58] LABS: BASOPHILS # (AUTO) 0.1 K/uL (0.0-0.2); EOSINOPHILS # (AUTO) 0.2 K/uL (0.0-0.4); EOSINOPHILS % (AUTO) 3.5 % (0.0-4.0); HEMATOCRIT 30.8 % (36-54); HEMOGLOBIN 10.8 g/dL (14.0-18.0); LYMPHOCYTES # (AUTO) 1.3 K/uL (1.0-5.5); LYMPHOCYTES % (AUTO) 19.1 % (20.5-51.5); MEAN CORPUSCULAR HEMOGLOBIN 35 pg (27-31); MEAN CORPUSCULAR HGB CONC 35 % (32-36); MEAN CORPUSCULAR VOLUME 100 fL (79.0-98.0); MONOCYTES # (AUTO) 0.9 K/uL (0.0-1.0); MONOCYTES % (AUTO) 13.9 % (1.7-9.3); NEUTROPHILS # (AUTO) 4.2 K/uL (1.8-7.7); NEUTROPHILS % (AUTO) 62.5 % (40.0-70.0); PLATELET COUNT (AUTO) 228 K/uL (130-430); RED BLOOD CELL COUNT(AUTO) 3.07 MIL/uL (4.2-6.2); RED CELL DISTRIBUTION WIDTH 17.3 % (9.0-15.0); WHITE BLOOD COUNT (AUTO) 6.7 K/uL (4.8-10.8)
[2022-05-16 08:00] VITALS: BP_SYST 127
[2022-05-16 08:23] LABS: CALCIUM 7.8 mg/dL (8.4-11.0); CREATININE 0.81 mg/dL (0.55-1.30); POTASSIUM 3.4 mmol/L (3.5-5.1)
[2022-05-16] MEDS: ALLOPURINOL 300 MG TABLET (ZYLOPRIM) PO SCH (08:30)
[2022-05-16] MEDS: ENOXAPARIN SODIUM 40 MG/0.4 ML SYRINGE SUBCUT SCH (08:31)
[2022-05-16] MEDS: VITAMIN B COMPLEX WITH C TAB/CAP PO SCH (08:31)
[2022-05-16] MEDS: DOCUSATE SODIUM 100 MG CAPSULE PO SCH ×2 (08:32→21:18)
[2022-05-16] MEDS: D5/0.45 NS 1,000 ML IV SCH ×2 (08:32→21:18)
[2022-05-16 12:00] VITALS: BP_SYST 136
[2022-05-16] MEDS ORDERED: POTASSIUM CHLORIDE 20 MEQ TAB.PRT.SR PO ONE (15:15)
[2022-05-16 16:00] VITALS: BP_SYST 134
[2022-05-16 19:52] VITALS: BP_SYST 147
[2022-05-16] MEDS ORDERED: IBUPROFEN 800 MG TABLET PO PRN (22:00)
[2022-05-16] MEDS: OXYCODONE/ACETAMINOPHEN 5-325 TABLET PO PRN (22:18)
[2022-05-17] MEDS: OXYCODONE/ACETAMINOPHEN 5-325 TABLET PO PRN ×2 (06:37→13:24)
[2022-05-17 06:39] VITALS: BP_SYST 129
[2022-05-17 07:58] VITALS: BP_SYST 132
[2022-05-17] MEDS: DOCUSATE SODIUM 100 MG CAPSULE PO SCH (09:28)
[2022-05-17] MEDS: VITAMIN B COMPLEX WITH C TAB/CAP PO SCH (09:28)
[2022-05-17] MEDS: ENOXAPARIN SODIUM 40 MG/0.4 ML SYRINGE SUBCUT SCH (09:30)
[2022-05-17] MEDS: ALLOPURINOL 300 MG TABLET (ZYLOPRIM) PO SCH (09:32)
[2022-05-17] MEDS: HYDROmorphone 1 MG/ML INJ. CARTRIDGE IVP PRN ×2 (09:51→18:43)
[2022-05-17 11:33] VITALS: BP_SYST 117
[2022-05-17 16:02] VITALS: BP_SYST 125
[2022-05-17 17:11] VITALS: BP_SYST 125
== END 2022-05-17 19:26 | DRG 482 ==
LOC: SED 10:56 → SMU 15:05
PROVIDERS: ADMIT Family Medicine; ATTEND Family Medicine
PROC: 0QH604Z Insertion of Internal Fixation Device into Right Upper Femur, Open Approach (ICD-10-PCS; principal; 2022-05-12 14:19)
DX: S72.011A Unspecified intracapsular fracture of right femur, initial encounter for closed fracture (principal); Z20.822 Contact with and (suspected) exposure to COVID-19; F10.20 Alcohol dependence, uncomplicated; F41.9 Anxiety disorder, unspecified; Y90.9 Presence of alcohol in blood, level not specified; Z90.49 Acquired absence of other specified parts of digestive tract; Z88.5 Allergy status to narcotic agent; Z91.013 Allergy to seafood
CPT/HCPCS: 36415; 71045; 72192-TC; 73501; 73502; 76376; 76700-TC; 80048; 80053; 81000; 82310; 85018; 85025; 85610-TC; 85730-TC; 86886; 86900; 86901; 87081; 93005; 96372; 96374; 97110-GP; 97112-GP; 97116-GP; 97530-GP; 99285; C1713; J0690; J1100; J1170; J1650; J1885; J2270; J2405; J2704; J2710; J3465; J3490; J7120

== ENCOUNTER 2022-06-23 12:44 | Inpatient (IN) | payer BC ==
[~2022-06-23] VITALS: Ht 172.7 cm; Wt 63.5 kg
[2022-06-23 12:44] VITALS: BP_SYST 153
[~2022-06-23 12:44] MED LIST changes: +ALLO300T2 PO
--- NOTE | 2022-06-23 12:44 | NUR ---
BROUGHT IN BY [facility] AND PLACED IN BED #5, TRIAGED, DR LOVETT AT BEDSIDE UPON ARRIVAL. REPORT GIVEN TO PATT
[2022-06-23] MEDS ORDERED: ONDANSETRON HCL 4 MG/2 ML VIAL IVP ONE (13:00)
[2022-06-23] MEDS ORDERED: LR 500 ML IV ONE (13:00)
--- NOTE | 2022-06-23 13:05 | NUR ---
first encounter to pt at this time. pt av hos from home here c/o ETOH, took 2 meds that makes him vomit. +n/v. no blood in vomit. +anxious. pt is AOx4, resp even and unlabored. tachy on monitor at 125. 18G to LAC, labs drawn and sent. medicated per JAN. vss otherwise. nad. wctm. seen by LISA.
[2022-06-23 13:28] LABS: BASOPHILS # (AUTO) 0.1 K/uL (0.0-0.2); BASOPHILS % (AUTO) 0.8 % (0.0-2.0); HEMATOCRIT 45.1 % (36-54); HEMOGLOBIN 14.9 g/dL (14.0-18.0); LYMPHOCYTES # (AUTO) 0.5 K/uL (1.0-5.5); LYMPHOCYTES % (AUTO) 5.4 % (20.5-51.5); MEAN CORPUSCULAR HEMOGLOBIN 33 pg (27-31); MEAN CORPUSCULAR HGB CONC 33 % (32-36); MEAN CORPUSCULAR VOLUME 101 fL (79.0-98.0); MONOCYTES # (AUTO) 0.2 K/uL (0.0-1.0); MONOCYTES % (AUTO) 2.5 % (1.7-9.3); NEUTROPHILS # (AUTO) 8.8 K/uL (1.8-7.7); NEUTROPHILS % (AUTO) 91.3 % (40.0-70.0); PLATELET COUNT (AUTO) 476 K/uL (130-430); RED BLOOD CELL COUNT(AUTO) 4.47 MIL/uL (4.2-6.2); RED CELL DISTRIBUTION WIDTH 16.9 % (9.0-15.0); WHITE BLOOD COUNT (AUTO) 9.7 K/uL (4.8-10.8)
[2022-06-23] MEDS ORDERED: LORazepam 1 MG TABLET PO ONE (13:30)
[2022-06-23 13:36] LABS: ALBUMIN 4.1 g/dL (3.4-4.8); CALCIUM 9.3 mg/dL (8.4-11.0); CREATININE 1.59 mg/dL (0.55-1.30); TOTAL BILIRUBIN 0.6 mg/dL (0.0-1.0)
--- NOTE | 2022-06-23 13:44 | NUR ---
Notified ED Admitting regarding Dr. Coulter's request for admission/transfer. Per Dr. Coulter, pt is stable for transfer. Will contact life insurance underwriter regarding this matter. PER FACESHEET: [facility]
[2022-06-23] MEDS ORDERED: SODIUM BICARBONATE 8.4% JECT 100 MEQ in D5W 1,000 ML IVP SCH (13:45)
--- NOTE | 2022-06-23 14:01 | NUR ---
AT BEDSIDE FOR SUPPORT
--- NOTE | 2022-06-23 14:05 | NUR ---
[facility], CALLED BACK TO GET CLINICAL INFO. STATED THEY WILL LOOK TO SEE IF PT CAN BE TRANSFERRED AND WILL CALL BACK. REQUEST FACESHEET AND CLINICALS TO BE FAXED. FAX: [phone]
--- NOTE | 2022-06-23 14:39 | NUR ---
COVID SWAB SENT TO LAB.
[2022-06-23] MEDS ORDERED: PANTOPRAZOLE SODIUM 40 MG/VIAL (PROTONIX) IVP ONE (14:45)
[2022-06-23] MEDS ORDERED: METOCLOPRAMIDE HCL 10 MG/2 ML VIAL IVP ONE (15:00)
[2022-06-23] MEDS ORDERED: SODIUM BICARBONATE 8.4% JECT 50 MEQ/50 ML SYRINGE ONE (15:07)
--- NOTE | 2022-06-23 15:09 | NUR ---
medicated per MAR. sodium bicarb drip started, 100ml/hr.
[2022-06-23] MEDS ORDERED: MORPHINE 2 MG/ML INJ. SYRINGE IVP PRN ×3 (15:15)
[2022-06-23] MEDS ORDERED: POTASSIUM CHLORIDE 20 MEQ TAB.PRT.SR PO PRN (15:15)
[2022-06-23] MEDS ORDERED: D5NS 1,000 ML IV SCH (15:15)
[2022-06-23] MEDS ORDERED: MUPIROCIN 2% TOPICAL OINTMENT 22 GM NS PRN (15:15)
[2022-06-23] MEDS ORDERED: ZOLPIDEM TARTRATE 5 MG TABLET PO PRN (15:15)
[2022-06-23] MEDS ORDERED: MAGNESIUM SULFATE 50 ML IV PRN (15:15)
[2022-06-23] MEDS ORDERED: ONDANSETRON HCL 4 MG/2 ML VIAL IVP PRN ×2 (15:15)
[2022-06-23] MEDS ORDERED: ACETAMINOPHEN 325 MG TABLET PO PRN ×2 (15:15)
[2022-06-23] MEDS ORDERED: DOCUSATE SODIUM 100 MG CAPSULE PO PRN (15:15)
[2022-06-23] MEDS ORDERED: THIAMINE HCL 100 MG in NS 50 ML IV ONE (16:00)
--- NOTE | 2022-06-23 17:08 | NUR ---
Admit bed requested Patient will be admitted to care of . Admitted to tele unit. Diagnosis alcoholic ketoacidosis Inpatient (Yes or No) yes Observation (Yes or No) no Orientation concerns or request close to nursing station (Yes or No) yes Covid Status neg On vent or bipap no Isolation requirements no Needs a sitter no From Home (Yes or if No enter name of facility) yes Requires Dialysis (Yes or No) no Med Rec Completed (Yes of No) yes
[2022-06-23 18:11] LABS: BILIRUBIN,URINE NEGATIVE (NEGATIVE); BLOOD, URINE NEGATIVE (NEGATIVE); CLARITY/URINE CLEAR (CLEAR); COLOR,URINE YELLOW (YELLOW); GLUCOSE,URINE NEGATIVE (NEGATIVE); KETONES,URINE 3+ (NEGATIVE); LEUKOCYTE ESTERASE ,URINE NEGATIVE (NEGATIVE); NITRITE, URINE NEGATIVE (NEGATIVE); PH,URINE 5.5 (5.0-8.0); PROTEIN URINE NEGATIVE (NEGATIVE); UROBILINOGEN,URINE 0.2 (0.2-1.0)
--- NOTE | 2022-06-23 18:35 | NUR ---
bedside report given to AMINA Moya. all questions answerd. IV site patent and intact, IVF sodium bicarb infusing 100ml/hr. all belongings with pt. pt is aox4, resp even and unlbaored. vss nad.
[2022-06-23 18:45] VITALS: BP_SYST 142
--- NOTE | 2022-06-23 18:45 | NUR ---
Patient stable at this time with no distress noted. IV infiltrated; will endorse to night nurse.
[2022-06-23 18:48] LABS: BACTERIA,URINE None Seen /HPF (None Seen); RBC,URINE NONE SEEN /HPF (0-3); WBC,URINE NONE SEEN /HPF (0-3)
[2022-06-23] MEDS ORDERED: SODIUM BICARBONATE 8.4% VIAL 100 MEQ in D5W 1,000 ML IV SCH (19:00)
[2022-06-23] MEDS ORDERED: FLUO60TA PO (19:09)
[2022-06-23] MEDS ORDERED: NALT50TA PO (19:13)
[2022-06-23] MEDS ORDERED: ACAM333T9 PO (19:13)
[2022-06-23 20:21] LABS: CALCIUM 8.5 mg/dL (8.4-11.0); CREATININE 1.54 mg/dL (0.55-1.30)
[2022-06-23] MEDS: PANTOPRAZOLE SODIUM 40 MG/VIAL (PROTONIX) IVP SCH ×2 (22:56→23:11)
[2022-06-24 07:25] LABS: BASOPHILS % (AUTO) 0.5 % (0.0-2.0); HEMATOCRIT 35.3 % (36-54); HEMOGLOBIN 12.2 g/dL (14.0-18.0); LYMPHOCYTES # (AUTO) 1.4 K/uL (1.0-5.5); MEAN CORPUSCULAR HEMOGLOBIN 34 pg (27-31); MEAN CORPUSCULAR HGB CONC 35 % (32-36); MEAN CORPUSCULAR VOLUME 97 fL (79.0-98.0); MONOCYTES # (AUTO) 1.1 K/uL (0.0-1.0); MONOCYTES % (AUTO) 15.7 % (1.7-9.3); NEUTROPHILS # (AUTO) 4.8 K/uL (1.8-7.7); NEUTROPHILS % (AUTO) 64.8 % (40.0-70.0); PLATELET COUNT (AUTO) 319 K/uL (130-430); RED BLOOD CELL COUNT(AUTO) 3.63 MIL/uL (4.2-6.2); RED CELL DISTRIBUTION WIDTH 16.6 % (9.0-15.0); WHITE BLOOD COUNT (AUTO) 7.3 K/uL (4.8-10.8)
[2022-06-24 08:00] VITALS: BP_SYST 113
--- NOTE | 2022-06-24 08:00 | NUR ---
paged requested breakfast, advice npo for now until seen by dr. mcgee, patient verbalized understanding.
[2022-06-24] MEDS: MULTIVITAMINS TAB 1 TABLET PO SCH (09:37)
[2022-06-24] MEDS: NEPHROVITE, (FOLIC ACID/VITAMIN B COMP W-C 1 TAB) PO SCH (09:37)
[2022-06-24 09:40] LABS: CALCIUM 8.5 mg/dL (8.4-11.0); CREATININE 1.26 mg/dL (0.55-1.30); PHOSPHORUS 1.5 mg/dL (2.7-4.5); POTASSIUM 3.9 mmol/L (3.5-5.1)
[2022-06-24] MEDS: NACL 0.9% 1,000 ML IV SCH ×2 (09:40→18:43)
[2022-06-24] MEDS ORDERED: chlordiazePOXIDE HCL 25 MG CAPSULE PO ONE (10:30)
[2022-06-24] MEDS: LORazepam 2 MG/ML VIAL IM PRN (10:31)
[2022-06-24 11:53] VITALS: BP_SYST 105
--- NOTE | 2022-06-24 13:41 | NUR ---
Spoke w/ Kristyn at [facility] [phone] # 1/ FAX [phone]. She is asking if patient is stable for transfer. I spoke to Dr Richardson-he gave stabilization order for patient. Kristyn was FAXed stabilization order for patient, she will begin process to transfer patient in network for [facility].
[2022-06-24] MEDS: chlordiazePOXIDE HCL 25 MG CAPSULE PO SCH ×2 (15:13→21:28)
[2022-06-24 16:49] VITALS: BP_SYST 110
[2022-06-24] MEDS: PANTOPRAZOLE SODIUM 40 MG/VIAL (PROTONIX) IVP SCH (21:27)
[2022-06-25 00:04] VITALS: BP_SYST 116
[2022-06-25] MEDS: LORazepam 2 MG/ML VIAL IM PRN ×2 (00:16→08:55)
[2022-06-25] MEDS: LORazepam 2 MG/ML VIAL IVP PRN ×2 (00:22→16:24)
[2022-06-25] MEDS: chlordiazePOXIDE HCL 25 MG CAPSULE PO SCH ×3 (08:29→20:20)
[2022-06-25] MEDS: NEPHROVITE, (FOLIC ACID/VITAMIN B COMP W-C 1 TAB) PO SCH (08:29)
[2022-06-25] MEDS: NAPH,MB-DB/K PH,MBDB 250 MG TAB PO SCH ×4 (08:30→20:20)
[2022-06-25] MEDS: MULTIVITAMINS TAB 1 TABLET PO SCH (08:30)
[2022-06-25] MEDS: PANTOPRAZOLE SODIUM 40 MG/VIAL (PROTONIX) IVP SCH ×2 (08:32→20:20)
[2022-06-25 10:00] LABS: CREATININE 0.95 mg/dL (0.55-1.30)
[2022-06-25 10:16] LABS: CALCIUM 8.6 mg/dL (8.4-11.0); POTASSIUM 3.2 mmol/L (3.5-5.1)
[2022-06-25 12:39] VITALS: BP_SYST 117
[2022-06-25] MEDS: NACL 0.9% 1,000 ML IV SCH ×2 (15:24→21:00)
[2022-06-25 16:15] VITALS: BP_SYST 113
[2022-06-25 20:00] VITALS: BP_SYST 123
[2022-06-26 00:14] VITALS: BP_SYST 113
[2022-06-26 04:00] VITALS: BP_SYST 118
[2022-06-26] MEDS: NACL 0.9% 1,000 ML IV SCH (05:29)
[2022-06-26] MEDS: LORazepam 2 MG/ML VIAL IM PRN (05:36)
--- NOTE | 2022-06-26 06:00 | NUR ---
PATIENT SLEPT WELL THE WHOLE NIGHT. NO DISTRESS OR DISCOMFORT NOTED. AAOX4. STABLE. GIVEN WITH ATIVAN PRN X1 THIS SHIFT FOR ANXIETY. PIV INTACT AND PATENT RUNNING ORDERED IVF. NO S/S OF INFILTRATION NOTED. VOIDING WELL. NO STOOL NOTED. KEPT WARM AND COMFORTABLE ON BED. SAFETY AND FALL PRECAUTIONS INSTITUTED. ALL NEEDS ATTENDED. CALL LIGHT PLACED WITHIN REACH. MONITORED CLOSELY.
[2022-06-26 08:00] VITALS: BP_SYST 139
[2022-06-26] MEDS: NAPH,MB-DB/K PH,MBDB 250 MG TAB PO SCH (08:30)
[2022-06-26] MEDS: chlordiazePOXIDE HCL 25 MG CAPSULE PO SCH ×2 (09:02→16:06)
[2022-06-26] MEDS: NEPHROVITE, (FOLIC ACID/VITAMIN B COMP W-C 1 TAB) PO SCH (09:02)
[2022-06-26] MEDS: PANTOPRAZOLE SODIUM 40 MG/VIAL (PROTONIX) IVP SCH (09:04)
[2022-06-26] MEDS: MULTIVITAMINS TAB 1 TABLET PO SCH (09:05)
[2022-06-26 12:00] VITALS: BP_SYST 132
[2022-06-26 12:28] VITALS: BP_SYST 139
--- NOTE | 2022-06-26 12:42 | NUR ---
CM: Received call from Dorcas Bueno, sister # [phone], stated pt's spouse Anne left him and dtr/Gerri would not participate /help the pt due to alcohol problems. The pt already had plan to attend [facility] in [place] which the pt supposed to be admit prior to come to [facility]. Discussed additional DC options : snf vs HH vs home /[facility]. Dorcas stated she will pick pt up, take him home and to get the pt to the [facility] bu tomorrow. -- AMINA Garcia made aware
[2022-06-26] MEDS ORDERED: LORA-259 PO (15:31)
[2022-06-26] MEDS ORDERED: LIB25 PO (15:34)
--- NOTE | 2022-06-26 16:00 | NUR ---
PATIENT WAS DISCHARGED HOME WITH HIS SISTER IN LAW ETTA PUCKETT. PATIENT RECEIVED ALL VALUABLES AND BELONGINGS. HOME MEDICATIONS WERE OBTAINED FROM PHARMACY AND SENT HOME WITH PATIENT. PT WAS ALERT AND TALKATIVE. NO S/S DT'S NOTED. DR. QUICK WAS NOTIFIED TO ENSURE D/C PRESCRIPTIONS FOR LIBRIUM AND ATIVAN WAS SENT TO PHARMACY OF CHOICE.
--- NOTE | 2022-06-27 08:41 | NUR ---
Dispo code 01
== END 2022-06-26 14:30 | disposition home or self-care (01) | DRG 640 ==
LOC: SED 12:44 → SMU 15:08 → STU 18:44
PROVIDERS: ADMIT Family Medicine; ATTEND Family Medicine
DX: E86.0 Dehydration (principal); N17.0 Acute kidney failure with tubular necrosis; E87.2 Acidosis; Z20.822 Contact with and (suspected) exposure to COVID-19; D64.9 Anemia, unspecified; F10.10 Alcohol abuse, uncomplicated; Y90.9 Presence of alcohol in blood, level not specified; Z88.5 Allergy status to narcotic agent; Z91.013 Allergy to seafood
CPT/HCPCS: 36415; 36600; 71046-TC; 80048; 80053; 81000; 82009; 82803-TC; 83605; 83690; 83735; 83930; 84100; 85025; 96374; 96375; 99291; C9113; G0378; J2060; J2405; J2765; J3411; J7060

== ENCOUNTER 2022-08-27 17:24 | Observation (INO) | payer BC ==
[~2022-08-27] VITALS: Ht 172.7 cm; Wt 63.3 kg
[~2022-08-27 17:24] MED LIST changes: +ACAM333T9 PO; +FLUO60TA PO; +NALT50TA PO
--- NOTE | 2022-08-27 17:30 | NUR ---
Patient to ER bed 05 to gown for evaluation. Side rails up.
[2022-08-27 17:33] VITALS: BP_SYST 141
[2022-08-27] MEDS ORDERED: LORazepam 2 MG/ML VIAL IVP ONE ×2 (18:30→21:15)
[2022-08-27] MEDS ORDERED: ONDANSETRON HCL 4 MG/2 ML VIAL IVP ONE (18:30)
[2022-08-27] MEDS ORDERED: NACL 0.9% 1,000 ML IV ONE (18:30)
--- NOTE | 2022-08-27 19:23 | NUR ---
ENDORSED PT TO AMINA GARY. ALL QUESTIONS AND CONCERNS ADDRESSED.
--- NOTE | 2022-08-27 19:36 | NUR ---
RECEIVED IN BED AA&O X3 , SPEECH CLEAR AND COHERENT , V/S STABLE. PATIENT NOTED TO SHAKE INTERMITENTLY, DENIES PAIN AT THIS TIME, WILL CONTINUE TO MONITOR
--- NOTE | 2022-08-27 22:25 | NUR ---
pt is aa&ox4. afebrile, nad. denies pain. safe & hazard free environment provided. VSS.
--- NOTE | 2022-08-27 22:25 | NUR ---
ER at bedside examining patient.
[2022-08-27] MEDS ORDERED: LORA-258 PO (22:29)
[2022-08-27] MEDS ORDERED: LIB25 PO (22:30)
[2022-08-27] MEDS ORDERED: VIS25 PO (22:31)
[2022-08-27] MEDS ORDERED: FOLIC ACID 1 MG, THIAMINE HCL 100 MG, MAGNESIUM SULFATE 1 GM, MVI 10 ML in NACL 0.9% 1,... IV ONE (23:45)
--- NOTE | 2022-08-27 23:57 | NUR ---
COVID-19 ANTIGEN SWAB SENT TO LAB AT 23:54.
[2022-08-28] LABS: BASOPHILS % (AUTO) 0.5 % (0.0-2.0); EOSINOPHILS % (AUTO) 0.1 % (0.0-4.0); HEMATOCRIT 35.3 % (36-54); HEMOGLOBIN 12.2 g/dL (14.0-18.0); LYMPHOCYTES # (AUTO) 1.6 K/uL (1.0-5.5); LYMPHOCYTES % (AUTO) 35.2 % (20.5-51.5); MEAN CORPUSCULAR HEMOGLOBIN 32 pg (27-31); MEAN CORPUSCULAR HGB CONC 35 % (32-36); MEAN CORPUSCULAR VOLUME 93 fL (79.0-98.0); MONOCYTES # (AUTO) 0.5 K/uL (0.0-1.0); MONOCYTES % (AUTO) 10.5 % (1.7-9.3); NEUTROPHILS # (AUTO) 2.4 K/uL (1.8-7.7); NEUTROPHILS % (AUTO) 53.7 % (40.0-70.0); PLATELET COUNT (AUTO) 122 K/uL (130-430); RED BLOOD CELL COUNT(AUTO) 3.82 MIL/uL (4.2-6.2); RED CELL DISTRIBUTION WIDTH 16.5 % (9.0-15.0); WHITE BLOOD COUNT (AUTO) 4.4 K/uL (4.8-10.8)
[2022-08-28 00:21] LABS: CALCIUM 7.7 mg/dL (8.4-11.0); CREATININE 0.87 mg/dL (0.55-1.30); POTASSIUM 3.4 mmol/L (3.5-5.1)
[2022-08-28] MEDS ORDERED: THIAMINE HCL 100 MG/ML VIAL ONE ×2 (00:39→02:51)
[2022-08-28] MEDS ORDERED: FOLIC ACID 5 MG/ML VIAL IV ONE (00:39)
[2022-08-28] MEDS ORDERED: MAGNESIUM SULFATE 1 GM/2 ML VIAL ONE ×2 (00:39→02:51)
[2022-08-28] MEDS ORDERED: MVI 10 ML VIAL IV ONE (00:39)
[2022-08-28] MEDS ORDERED: FOLIC ACID 1 MG, THIAMINE HCL 100 MG, MAGNESIUM SULFATE 1 GM, MVI 10 ML in NACL 0.9% 1,... IV ONE (01:00)
--- NOTE | 2022-08-28 01:05 | NUR ---
Admit bed requested Patient will be admitted to care of Dr. Crawford Admitted to [facility] OBS unit. Diagnosis Alcohol Withdrawal Inpatient (Yes or No) no Observation (Yes or No) yes Orientation concerns or request close to nursing station (Yes or No) no Covid Status negative On vent or bipap no Isolation requirements no Needs a sitter no From Home (Yes or if No enter name of facility) yes Requires Dialysis (Yes or No) no Med Rec Completed (Yes of No) yes
--- NOTE | 2022-08-28 01:30 | NUR ---
Patient will be admitted to care of [facility]. Admitted to [facility] OBS unit. Will go to room 105B. Belongings list completed. Complete and up to date summary report printed. Report given to AMINA Sheridan.
--- NOTE | 2022-08-28 01:30 | NUR ---
Received report from ED RN, and assumed patient care. Will wait for patient to be transferred over to room 105B. No additional questions noted at the moment, will reinforce if needed throughout the shift.
--- NOTE | 2022-08-28 01:50 | NUR ---
Patient arrived via gurney, educated the patient about the unit policies, and the use of call light and the plan of care. Patient understands the teaching and will reinforce education if needed throughout the shift. Call light within reach, bed is in lowest position, no additional questions or complications noted at the moment.
--- NOTE | 2022-08-28 01:50 | NUR ---
ADMISSION NOTE Received patient from ER via gurney. Patient admitted with diagnosis of alcohol withdrawal. Patient is awake, alert, oriented X 4. Patient oriented to hospital room, call light, toileting, pain management and safety-teach back done. Patient informed that their room number is 105B. Personal belongings checked and Belongings List documented. Call light within reach.
[2022-08-28 01:57] VITALS: BP_SYST 161
--- NOTE | 2022-08-28 02:00 | NUR ---
Placed seizure precautions, padded side rails, bed alarm is in place, and call light within reach. Patient is aware of the situation and will reinforce if needed throughout the shift.
[2022-08-28 08:00] VITALS: BP_SYST 146
[2022-08-28] MEDS ORDERED: LORazepam 2 MG/ML VIAL IM PRN (09:30)
[2022-08-28] MEDS ORDERED: ACETAMINOPHEN 325 MG TABLET PO PRN ×2 (09:30→12:15)
--- NOTE | 2022-08-28 10:00 | NUR ---
This typewriter operator automatic received a call from [facility]. Silvia called and stated that Mr. Walters had been admitted under observation status and this status is good until 08/30/22 as he was admitted 08/28/22. If he needs further hospitalization after that date he will need to be transferred to [facility]. Mr. Walters has been made aware of this and is compliant with that plan. the admitting physician was informed also. Silvia states that any questions can be answered by called [phone] and fax [phone] someone is available 24 hours a day
[2022-08-28] MEDS: LORazepam 2 MG/ML VIAL IV PRN ×2 (10:48→20:28)
[2022-08-28 11:25] VITALS: BP_SYST 142
[2022-08-28] MEDS ORDERED: LORazepam 2 MG/ML VIAL IVP PRN (12:15)
[2022-08-28] MEDS ORDERED: ONDANSETRON HCL 4 MG/2 ML VIAL IVP PRN (12:15)
[2022-08-28] MEDS ORDERED: LORazepam 1 MG TABLET PO PRN (12:15)
--- NOTE | 2022-08-28 12:27 | NUR ---
CONSULTATION PAGED REASON FOR CONSULTATION:PANCYTOPENIA WAS CONSULT CALLED?Y PERSON WHO WAS NOTIFIED:FEBRUARY CONSULTING PHYSICIAN:WILL WILKINSON SERVOMECHANISM DESIGNER SPECIALTY:ONCOLOGY/HEMATOLOGY SERVOMECHANISM DESIGNER PHONE NUMBER:[phone] REQUESTING PHYSICIAN:DIEGO SIM
[2022-08-28] MEDS ORDERED: NORMAL SALINE 5 ML DISP.SYRIN IVF SCH (14:00)
[2022-08-28] MEDS ORDERED: ACAMPROSATE CALCIUM 333 MG TABLET.DR PO SCH (15:00)
[2022-08-28 15:46] VITALS: BP_SYST 130
[2022-08-28] MEDS: NORMAL SALINE 5 ML DISP.SYRIN IVF SCH ×2 (15:58→21:54)
[2022-08-28] MEDS: chlordiazePOXIDE HCL 25 MG CAPSULE PO SCH ×2 (15:58→21:54)
--- NOTE | 2022-08-28 18:30 | NUR ---
Mr Walters has been assessed as indicated. He was given Tylenol once for a headache and he was given IV Ativan x1 this shift. The tremors have greatly reduced. He remains both pleasant and cooperative. He has been assisted to the BS. he uses the urinal successfully. His has brought in a walker for him this evening. He is awaiting an abdominal US. He was eating lunch when the department called and stated that he needed to be NPO for 8 hours. He will will not eat or drink anything after mid night tonight and will have the exam in the morning. Mr Walters states that he wants to stop drinking. He will start therapy soon to resolve whatever drives him to drink. He is presently resting quietly with no s/s of distress or discomfort. His is at the bedside.
[2022-08-28 19:00] VITALS: BP_SYST 121
--- NOTE | 2022-08-28 19:15 | NUR ---
change of shift.pt.presents etoh withdrawl status.pt.presents weakness upepr/lower extremities.pt.presents bedrest activity status.pt.utilizing bsc/urinal.w/in access of the pt.call light/telephone w/in access of the pt.
--- NOTE | 2022-08-28 19:15 | NUR ---
Handoff has been given to Alex
[2022-08-28 20:00] VITALS: BP_SYST 121
--- NOTE | 2022-08-28 20:00 | NUR ---
pt.assessed.v/s assessed values wnl.no c/o pain,.nausea.pt,inquirey r/e next dose ativan is due.to review the emar med-list. i have attended to the urinal placed w/in access of the pt.pt.capable to reposition markel.general status stable.respiratory status stable.call light/telephone w/in access of the pt.
--- NOTE | 2022-08-28 20:30 | NUR ---
pt.presented anxious status.ativan:1mg ivp administered.to assesse the efficacy of the medication per protocol.
--- NOTE | 2022-08-28 22:00 | NUR ---
pt.assessed.rt.quiescent;somnolent.per flacc pain mgx pt.absent facial grimaces/body posturing.pt.capable to reposition self. bsc./urinal w/in access of the pt.
--- NOTE | 2022-08-29 | NUR ---
pt.assessed.v/s assessed values wnl.no c/o pain,nausea.iv access intact.i have attended to the urinal placed w/in access of the pt.pt.capable to reposition self.call light/telephone w/in access of the pt.
[2022-08-29 00:36] VITALS: BP_SYST 136
--- NOTE | 2022-08-29 01:30 | NUR ---
pt.presented anxious status.i have administered ativan:1mg ivp.to asses the efficacy of the medication per protocol.
[2022-08-29] MEDS: LORazepam 2 MG/ML VIAL IV PRN ×4 (01:36→15:06)
--- NOTE | 2022-08-29 02:00 | NUR ---
pt.assessed.pt.quiescent;somnolent.per flacc pain mgx pt.absent facial grimaces/body posturing.pt,capable to reposition self. call light/telephone w/in access of the pt.
--- NOTE | 2022-08-29 04:00 | NUR ---
pt.assessed.pt.quiescent;somnolent.per flacc pain mgx pt.absent facial grimaces/body posturing.pt.capable to reposition self.bsc/urinal w/in access of the pt.call light/telephone w/in access of the pt.
[2022-08-29] MEDS: NORMAL SALINE 5 ML DISP.SYRIN IVF SCH (05:04)
[2022-08-29] MEDS: chlordiazePOXIDE HCL 25 MG CAPSULE PO SCH ×2 (05:04→15:01)
[2022-08-29 07:34] LABS: BASOPHILS % (AUTO) 0.6 % (0.0-2.0); EOSINOPHILS # (AUTO) 0.1 K/uL (0.0-0.4); EOSINOPHILS % (AUTO) 2.7 % (0.0-4.0); HEMATOCRIT 37.9 % (36-54); LYMPHOCYTES # (AUTO) 1.7 K/uL (1.0-5.5); LYMPHOCYTES % (AUTO) 34.4 % (20.5-51.5); MEAN CORPUSCULAR HEMOGLOBIN 32 pg (27-31); MEAN CORPUSCULAR HGB CONC 34 % (32-36); MEAN CORPUSCULAR VOLUME 93 fL (79.0-98.0); MONOCYTES # (AUTO) 0.4 K/uL (0.0-1.0); MONOCYTES % (AUTO) 7.8 % (1.7-9.3); NEUTROPHILS # (AUTO) 2.6 K/uL (1.8-7.7); NEUTROPHILS % (AUTO) 54.5 % (40.0-70.0); PLATELET COUNT (AUTO) 111 K/uL (130-430); RED BLOOD CELL COUNT(AUTO) 4.07 MIL/uL (4.2-6.2); RED CELL DISTRIBUTION WIDTH 16.6 % (9.0-15.0); WHITE BLOOD COUNT (AUTO) 4.8 K/uL (4.8-10.8)
[2022-08-29 08:00] VITALS: BP_SYST 123
[2022-08-29 08:05] LABS: ALBUMIN 3.3 g/dL (3.4-4.8); CALCIUM 8.5 mg/dL (8.4-11.0); CREATININE 0.96 mg/dL (0.55-1.30); PHOSPHORUS 3.2 mg/dL (2.7-4.5); POTASSIUM 3.1 mmol/L (3.5-5.1); TOTAL BILIRUBIN 1.1 mg/dL (0.0-1.0)
[2022-08-29] MEDS ORDERED: MULTIVITAMINS TAB 1 TABLET PO SCH (09:00)
[2022-08-29] MEDS ORDERED: FLUOXETINE HCL 20 MG PO SCH (09:00)
[2022-08-29] MEDS ORDERED: NALTREXONE HCL 50 MG PO SCH (09:00)
[2022-08-29] MEDS ORDERED: FLUoxetine HCL 20 MG CAPSULE (PROzac) PO SCH (09:00)
[2022-08-29] MEDS ORDERED: ALLOPURINOL 300 MG TABLET (ZYLOPRIM) PO SCH (09:00)
[2022-08-29] MEDS ORDERED: FOLIC ACID 1 MG TABLET PO SCH (09:00)
[2022-08-29] MEDS ORDERED: THIAMINE HCL 100 MG TABLET PO SCH (09:00)
[2022-08-29 09:30] LABS: TOTAL IRON BIND. CAPACITY 211 ug/dL (250-450)
[2022-08-29] MEDS ORDERED: MAGNESIUM SULFATE 50 ML IV ONE (09:45)
[2022-08-29] MEDS ORDERED: POTASSIUM CHLORIDE 20 MEQ TAB.PRT.SR PO ONE (09:45)
[2022-08-29] MEDS ORDERED: MULT400T13 PO (09:51)
[2022-08-29] MEDS ORDERED: FOLI-43 PO (09:51)
[2022-08-29] MEDS ORDERED: Thiamine Hcl PO (09:51)
--- NOTE | 2022-08-29 10:35 | NUR ---
Patient attempted to urinate but misses and lands on pad.Patient has smear for BM. Dr. Crawford made aware of unable to collect urine and stool samples.
[2022-08-29 11:45] VITALS: BP_SYST 139
--- NOTE | 2022-08-29 13:37 | NUR ---
Gas Tender BUNG DROPPER received a referral to see pt. for Alcohol withdrawals BUNG DROPPER introduced self to pt. who was eating lunch. Pt. was pleasant, spoke slowly and continued to eat his lunch. Pt. had tremors and ate slowly. Pt. knew was [employer], was a good historian and could recall how he was admitted. Pt. stated he was drinking and had fallen in his bathroom. Pt. stated he is recovering from recent hip surgery. Pt. stated he needs to stop drinking because he felt like this last time he was going to . Pt. stated he feels like a loser. BUNG DROPPER asked pt. what was his plan. Pt. replied he had been in [employer] a couple of years ago and that he wants to go back. Pt. added he was participating in AA and jus stopped. Pt. stated he is willing to go back. To date, he had an apt. with a counselor on , [address]. His found him in the [employer] and his office on [address]. His will accompany him. Additionally, pt. has an apt. with a Psyc. who is going to prescribe him 2 anti-craving meds. Pt. has used them 2 years ago and just suddenly stopped. Pt. stated he has thought of alternative coping mech. and said he can go on walks, play his piano and take a Arabic course. Pt. stated he feels anxious na depressed but attributes this to his drinking. BUNG DROPPER pointed out all the positives pt. has. BUNG DROPPER stated with more education, pt. will realize he is not a loser, but is battling a disease and the more support he has, the more probable he will be at sobriety. BUNG DROPPER pointed out that pt. has a lot of insight and hoped he kept all his apts. Pt. did not have any questions. BUNG DROPPER will remain available as needed.
--- NOTE | 2022-08-29 15:07 | NUR ---
Ativan given 30 minutes after librium per patient's request.
--- NOTE | 2022-08-29 15:42 | NUR ---
Clarified orders regarding urinalysis and stool sample with Dr. Crawford. Patient to be discharged today so orders cancelled. Patient's won't be able to come until 5:[address] Crawford ok for patient to leave at that time.
[2022-08-29 16:21] VITALS: BP_SYST 124
--- NOTE | 2022-08-29 17:08 | NUR ---
Patient's called with concern for patient because he will be living by himself. Patient ambulated by AMINA Maloney out of bed and patient said he can take care of himself at home. Patient ok with his giving him a ride home. Patient using FWW to ambulate back to bed.
[2022-08-29 17:57] VITALS: BP_SYST 136
--- NOTE | 2022-08-29 18:47 | NUR ---
Patient ready for discharge. Patient said that he is ready to leave and is ok with being on his own. No distress noted. Vital signs stable. IV removed on arm. Patient education provided. Paperwork given. Patient able to use FWW correctly from bed to wheelchair. 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 Patient taken to front of lobby and picked up by .
--- NOTE | 2022-08-29 18:57 | NUR ---
Called Anne and patient regarding prescription in chart. Anne came back to belt picker prescription for thiamine for patient. Patient aware.
--- NOTE | 2022-08-30 08:13 | NUR ---
Dispo code 01
[2022-08-31 01:06] LABS: FOLATE (FOLIC ACID) 7.1 ng/mL (>3.0)
[2022-09-05 09:40] LABS: FERRITIN 879 ng/mL (30-400)
--- NOTE | 2022-09-15 16:09 | NUR ---
IV ADMINISTRATION END TIME (Observation Patients ONLY): late entry IV infusion of Magnesium Sulfate started on 08/29/22 at 10:37 and ended at 12:37 on 08/29/22 .
--- NOTE | 2022-09-15 16:11 | NUR ---
IV ADMINISTRATION END TIME (Observation Patients ONLY): late entry IV infusion of Folic Acid/thiamine hcl /mag sulfate /multivitamins /mineral/sodium chloride at 250 mls per hour started on 08/28/22 at 00:43 and ended at 03:13 on 08/28/22. IV infusion of Folic Acid/thiamine hcl /mag sulfate /multivitamins /mineral/sodium chloride at 100 mls per hour started on 08/28/22 at 03:13 and ended at 13:00 on 08/28/22. IV infusion of Normal Saline at 999mls/hr started at 18:30 on 08/27/22 and ended at 19:30 08/27/22
== END 2022-08-29 18:45 | disposition home or self-care (01) ==
LOC: SED 17:24 → SMU 08-28 00:56
PROVIDERS: ADMIT Preventive Medicine Preventive Medicine/Occupational Environmental Medicine; ATTEND Preventive Medicine Preventive Medicine/Occupational Environmental Medicine
DX: F10.239 Alcohol dependence with withdrawal, unspecified (principal); Z20.822 Contact with and (suspected) exposure to COVID-19; F10.229 Alcohol dependence with intoxication, unspecified; D72.819 Decreased white blood cell count, unspecified; D64.9 Anemia, unspecified; D61.818 Other pancytopenia; D69.6 Thrombocytopenia, unspecified; E87.6 Hypokalemia; E83.41 Hypermagnesemia; E88.09 Other disorders of plasma-protein metabolism, not elsewhere classified; E80.6 Other disorders of bilirubin metabolism; E83.42 Hypomagnesemia; E83.51 Hypocalcemia; F32.A Depression, unspecified; Z79.899 Other long term (current) drug therapy
CPT/HCPCS: 96361; 96375; 96376 ×3; 80048; 85025 ×2; 36415 ×2; 99284; 87426; 96365; 96366 ×2; 80053; 83540; 83550; 83735; 84100; 76700; 96367; 97162; 82728; 82746; J2060 ×3; J2405; J3490; J3475 ×2; J3411; J7030; G0378 ×2; 82607

== ENCOUNTER 2022-09-19 12:27 | Inpatient (IN) | payer BC ==
[~2022-09-19] VITALS: Ht 30.5 cm; Wt 55.8 kg
[~2022-09-19 12:27] MED LIST changes: +FOLI-43 PO; +MULT400T13 PO; +Thiamine Hcl PO; +VIS25 PO
[2022-09-19 12:35] VITALS: BP_SYST 151
[2022-09-19] MEDS ORDERED: LORazepam 2 MG/ML VIAL IVP ONE (12:45)
[2022-09-19] MEDS ORDERED: NACL 0.9% 1,000 ML IV ONE (12:45)
[2022-09-19] MEDS ORDERED: ONDANSETRON HCL 4 MG/2 ML VIAL IVP ONE (13:15)
[2022-09-19 13:17] LABS: BASOPHILS # (AUTO) 0.1 K/uL (0.0-0.2); BASOPHILS % (AUTO) 1.4 % (0.0-2.0); EOSINOPHILS % (AUTO) 0.7 % (0.0-4.0); HEMATOCRIT 40.6 % (36-54); HEMOGLOBIN 13.9 g/dL (14.0-18.0); LYMPHOCYTES # (AUTO) 1.8 K/uL (1.0-5.5); LYMPHOCYTES % (AUTO) 35.5 % (20.5-51.5); MEAN CORPUSCULAR HEMOGLOBIN 33 pg (27-31); MEAN CORPUSCULAR HGB CONC 34 % (32-36); MEAN CORPUSCULAR VOLUME 97 fL (79.0-98.0); MONOCYTES # (AUTO) 0.8 K/uL (0.0-1.0); MONOCYTES % (AUTO) 14.8 % (1.7-9.3); NEUTROPHILS # (AUTO) 2.5 K/uL (1.8-7.7); NEUTROPHILS % (AUTO) 47.6 % (40.0-70.0); PLATELET COUNT (AUTO) 197 K/uL (130-430); RED BLOOD CELL COUNT(AUTO) 4.18 MIL/uL (4.2-6.2); RED CELL DISTRIBUTION WIDTH 20.4 % (9.0-15.0); WHITE BLOOD COUNT (AUTO) 5.2 K/uL (4.8-10.8)
[2022-09-19 13:38] LABS: ANION GAP 31 (5-15); CALCIUM 8.8 mg/dL (8.4-11.0); CHLORIDE 98 mmol/L (98-107); CREATININE 1.02 mg/dL (0.55-1.30); GLUCOSE 84 mg/dL (70-99); POTASSIUM 3.4 mmol/L (3.5-5.1); UREA NITROGEN, BLOOD 12 mg/dL (8-21)
[2022-09-19 13:44] LABS: GFR AFRICAN AMERICAN 95 mL/min (>90)
[2022-09-19 13:50] LABS: ALANINE AMINOTRANSFERASE 57 U/L (12-78); ALBUMIN 4.1 g/dL (3.4-4.8); ALCOHOL, BLOOD 77 mg/dL (<10); ASPARTATE AMINOTRANSFERASE 69 U/L (10-37); TOTAL BILIRUBIN 0.7 mg/dL (0.0-1.0)
[2022-09-19] MEDS ORDERED: FOLIC ACID 1 MG, THIAMINE HCL 100 MG, MAGNESIUM SULFATE 1 GM, MVI 10 ML in NACL 0.9% 1,... IV ONE (15:15)
[2022-09-19] MEDS ORDERED: chlordiazePOXIDE HCL 25 MG CAPSULE PO ONE (15:30)
[2022-09-19] MEDS ORDERED: DOCUSATE SODIUM 100 MG CAPSULE PO PRN (16:00)
[2022-09-19] MEDS ORDERED: MUPIROCIN 2% TOPICAL OINTMENT 22 GM NS PRN (16:00)
[2022-09-19] MEDS ORDERED: FOLIC ACID 1 MG, MVI 10 ML in NACL 0.9% 1,000 ML IV ONE (16:00)
[2022-09-19] MEDS ORDERED: THIAMINE HCL 100 MG, MAGNESIUM SULFATE 1 GM in NS 100 ML IV ONE (16:00)
[2022-09-19] MEDS ORDERED: ACETAMINOPHEN 325 MG TABLET PO PRN (16:00)
[2022-09-19] MEDS ORDERED: MAGNESIUM SULFATE 50 ML IV PRN (16:00)
[2022-09-19] MEDS ORDERED: MAGNESIUM SULFATE 1 GM/2 ML VIAL ONE (17:37)
[2022-09-19] MEDS ORDERED: THIAMINE HCL 100 MG/ML VIAL ONE (17:37)
[2022-09-19] MEDS ORDERED: MVI 10 ML VIAL IV ONE (17:38)
[2022-09-19] MEDS ORDERED: FOLIC ACID 5 MG/ML VIAL IV ONE (17:38)
[2022-09-19] MEDS: NACL 0.9% 1,000 ML IV SCH (17:54)
[2022-09-19] MEDS: ONDANSETRON HCL 4 MG/2 ML VIAL IVP PRN (17:58)
[2022-09-19 20:53] VITALS: BP_SYST 138
[2022-09-19] MEDS: PANTOPRAZOLE SODIUM 40 MG TAB PO SCH (21:40)
[2022-09-19] MEDS: chlordiazePOXIDE HCL 25 MG CAPSULE PO SCH (21:40)
[2022-09-20 00:10] VITALS: BP_SYST 139
[2022-09-20 00:18] VITALS: BP_SYST 133
[2022-09-20] MEDS: NACL 0.9% 1,000 ML IV SCH ×3 (03:11→21:17)
[2022-09-20 07:21] LABS: BASOPHILS # (AUTO) 0.1 K/uL (0.0-0.2); BASOPHILS % (AUTO) 1.1 % (0.0-2.0); EOSINOPHILS # (AUTO) 0.1 K/uL (0.0-0.4); HEMATOCRIT 34.3 % (36-54); LYMPHOCYTES # (AUTO) 1.7 K/uL (1.0-5.5); LYMPHOCYTES % (AUTO) 30.1 % (20.5-51.5); MEAN CORPUSCULAR HEMOGLOBIN 34 pg (27-31); MEAN CORPUSCULAR HGB CONC 35 % (32-36); MEAN CORPUSCULAR VOLUME 97 fL (79.0-98.0); MONOCYTES # (AUTO) 0.7 K/uL (0.0-1.0); MONOCYTES % (AUTO) 12.3 % (1.7-9.3); NEUTROPHILS % (AUTO) 54.5 % (40.0-70.0); PLATELET COUNT (AUTO) 136 K/uL (130-430); RED BLOOD CELL COUNT(AUTO) 3.55 MIL/uL (4.2-6.2); RED CELL DISTRIBUTION WIDTH 19.5 % (9.0-15.0); WHITE BLOOD COUNT (AUTO) 5.5 K/uL (4.8-10.8)
[2022-09-20 07:40] LABS: CALCIUM 7.6 mg/dL (8.4-11.0); CREATININE 0.74 mg/dL (0.55-1.30); POTASSIUM 3.2 mmol/L (3.5-5.1)
[2022-09-20] MEDS: FOLIC ACID 1 MG TABLET PO SCH (08:40)
[2022-09-20] MEDS: PANTOPRAZOLE SODIUM 40 MG TAB PO SCH ×2 (08:40→21:16)
[2022-09-20] MEDS: chlordiazePOXIDE HCL 25 MG CAPSULE PO SCH ×3 (08:40→21:16)
[2022-09-20] MEDS: FLUoxetine HCL 20 MG CAPSULE (PROzac) PO SCH (08:40)
[2022-09-20] MEDS: ALLOPURINOL 300 MG TABLET (ZYLOPRIM) PO SCH (09:00)
[2022-09-20] MEDS: POTASSIUM CHLORIDE 20 MEQ TAB.PRT.SR PO PRN (09:17)
[2022-09-20] MEDS: LORazepam 2 MG/ML VIAL IVP PRN ×4 (09:20→23:10)
[2022-09-20] MEDS: ONDANSETRON HCL 4 MG/2 ML VIAL IVP PRN ×2 (09:30→18:41)
[2022-09-20 11:31] VITALS: BP_SYST 126
[2022-09-20 15:27] VITALS: BP_SYST 118
[2022-09-20 20:59] VITALS: BP_SYST 124
[2022-09-20 23:50] LABS: BILIRUBIN,URINE NEGATIVE (NEGATIVE); BLOOD, URINE 3+ (NEGATIVE); CLARITY/URINE CLEAR (CLEAR); COLOR,URINE YELLOW (YELLOW); GLUCOSE,URINE NEGATIVE (NEGATIVE); KETONES,URINE NEGATIVE (NEGATIVE); LEUKOCYTE ESTERASE ,URINE NEGATIVE (NEGATIVE); NITRITE, URINE NEGATIVE (NEGATIVE); PH,URINE 7.5 (5.0-8.0); PROTEIN URINE NEGATIVE (NEGATIVE)
[2022-09-20 23:59] LABS: BACTERIA,URINE None Seen /HPF (None Seen); MUCUS,URINE None Seen /LPF (None Seen); RBC,URINE 20-50 /HPF (0-3); WBC,URINE 0-3 /HPF (0-3)
[2022-09-21 00:26] VITALS: BP_SYST 125
[2022-09-21] MEDS: LORazepam 2 MG/ML VIAL IVP PRN ×2 (03:56→22:07)
[2022-09-21 08:15] LABS: CREATININE 0.76 mg/dL (0.55-1.30)
[2022-09-21 08:19] LABS: BASOPHILS % (AUTO) 0.7 % (0.0-2.0); EOSINOPHILS # (AUTO) 0.2 K/uL (0.0-0.4); EOSINOPHILS % (AUTO) 2.9 % (0.0-4.0); HEMATOCRIT 34.9 % (36-54); HEMOGLOBIN 12.1 g/dL (14.0-18.0); LYMPHOCYTES # (AUTO) 1.4 K/uL (1.0-5.5); LYMPHOCYTES % (AUTO) 21.4 % (20.5-51.5); MEAN CORPUSCULAR HEMOGLOBIN 34 pg (27-31); MEAN CORPUSCULAR HGB CONC 35 % (32-36); MEAN CORPUSCULAR VOLUME 97 fL (79.0-98.0); MONOCYTES # (AUTO) 0.6 K/uL (0.0-1.0); MONOCYTES % (AUTO) 8.8 % (1.7-9.3); NEUTROPHILS # (AUTO) 4.2 K/uL (1.8-7.7); NEUTROPHILS % (AUTO) 66.2 % (40.0-70.0); PLATELET COUNT (AUTO) 111 K/uL (130-430); RED BLOOD CELL COUNT(AUTO) 3.59 MIL/uL (4.2-6.2); RED CELL DISTRIBUTION WIDTH 19.6 % (9.0-15.0); WHITE BLOOD COUNT (AUTO) 6.4 K/uL (4.8-10.8)
[2022-09-21] MEDS ORDERED: THIA250T3 PO (08:55)
[2022-09-21] MEDS ORDERED: FOLI-43 PO (08:55)
[2022-09-21] MEDS ORDERED: LIB25 PO (08:55)
[2022-09-21] MEDS ORDERED: MAGNESIUM SULFATE 50 ML IV ONE (09:00)
[2022-09-21] MEDS: NACL 0.9% 1,000 ML IV SCH ×2 (09:42→17:01)
[2022-09-21] MEDS: POTASSIUM CHLORIDE 20 MEQ TAB.PRT.SR PO PRN (09:44)
[2022-09-21] MEDS: PANTOPRAZOLE SODIUM 40 MG TAB PO SCH ×2 (09:44→21:44)
[2022-09-21] MEDS: chlordiazePOXIDE HCL 25 MG CAPSULE PO SCH ×3 (09:44→21:44)
[2022-09-21] MEDS: FOLIC ACID 1 MG TABLET PO SCH (09:44)
[2022-09-21] MEDS: FLUoxetine HCL 20 MG CAPSULE (PROzac) PO SCH (09:44)
[2022-09-21] MEDS: ALLOPURINOL 300 MG TABLET (ZYLOPRIM) PO SCH (09:44)
[2022-09-21 12:00] VITALS: BP_SYST 139
[2022-09-21 16:00] VITALS: BP_SYST 146
[2022-09-21 21:00] VITALS: BP_SYST 118
[2022-09-22 04:00] VITALS: BP_SYST 141
[2022-09-22] MEDS: NACL 0.9% 1,000 ML IV SCH (04:00)
[2022-09-22 07:10] LABS: BASOPHILS % (AUTO) 0.6 % (0.0-2.0); EOSINOPHILS # (AUTO) 0.3 K/uL (0.0-0.4); EOSINOPHILS % (AUTO) 3.6 % (0.0-4.0); HEMATOCRIT 38.7 % (36-54); HEMOGLOBIN 13.4 g/dL (14.0-18.0); LYMPHOCYTES # (AUTO) 1.4 K/uL (1.0-5.5); LYMPHOCYTES % (AUTO) 18.6 % (20.5-51.5); MEAN CORPUSCULAR HEMOGLOBIN 34 pg (27-31); MEAN CORPUSCULAR HGB CONC 35 % (32-36); MEAN CORPUSCULAR VOLUME 97 fL (79.0-98.0); MONOCYTES # (AUTO) 0.5 K/uL (0.0-1.0); MONOCYTES % (AUTO) 6.7 % (1.7-9.3); NEUTROPHILS # (AUTO) 5.5 K/uL (1.8-7.7); NEUTROPHILS % (AUTO) 70.5 % (40.0-70.0); PLATELET COUNT (AUTO) 100 K/uL (130-430); RED BLOOD CELL COUNT(AUTO) 3.98 MIL/uL (4.2-6.2); RED CELL DISTRIBUTION WIDTH 19.2 % (9.0-15.0); WHITE BLOOD COUNT (AUTO) 7.8 K/uL (4.8-10.8)
[2022-09-22 07:18] LABS: CALCIUM 8.6 mg/dL (8.4-11.0); CREATININE 0.74 mg/dL (0.55-1.30)
[2022-09-22 08:00] VITALS: BP_SYST 147
[2022-09-22] MEDS: FOLIC ACID 1 MG TABLET PO SCH (09:32)
[2022-09-22] MEDS: ALLOPURINOL 300 MG TABLET (ZYLOPRIM) PO SCH (09:32)
[2022-09-22] MEDS: PANTOPRAZOLE SODIUM 40 MG TAB PO SCH (09:32)
[2022-09-22] MEDS: FLUoxetine HCL 20 MG CAPSULE (PROzac) PO SCH (09:32)
[2022-09-22] MEDS: chlordiazePOXIDE HCL 25 MG CAPSULE PO SCH (09:32)
[2022-09-22 09:56] VITALS: BP_SYST 147
== END 2022-09-22 11:15 | disposition home health service (06) | DRG 897 ==
LOC: SED 12:27 → STU 15:05
PROVIDERS: ADMIT General Practice; ATTEND General Practice
DX: F10.139 Alcohol abuse with withdrawal, unspecified (principal); E87.6 Hypokalemia; D63.8 Anemia in other chronic diseases classified elsewhere; M16.11 Unilateral primary osteoarthritis, right hip; E83.42 Hypomagnesemia; Z20.822 Contact with and (suspected) exposure to COVID-19; Y90.9 Presence of alcohol in blood, level not specified; Z91.013 Allergy to seafood; Z88.5 Allergy status to narcotic agent
CPT/HCPCS: 36415; 71045; 80048; 80053; 81000; 82009; 83036; 83735; 83880; 84484; 85025; 87040; 93005; 96361; 96365; 96366; 96368; 96375; 96376; 99285; G0378; G0482; J2060; J2405; J3411; J3475; J3490; J7030

== ENCOUNTER 2023-02-21 16:44 | Inpatient (IN) | payer BC, OTHER ==
[~2023-02-21] VITALS: Ht 172.7 cm; Wt 59.9 kg
[~2023-02-21 16:44] MED LIST changes: -LORA-259 PO; +THIA250T3 PO; -Thiamine Hcl PO
[2023-02-21 16:49] VITALS: BP_SYST 138
[2023-02-21] MEDS ORDERED: LORazepam 2 MG/ML VIAL IVP ONE (17:00)
[2023-02-21] MEDS ORDERED: NACL 0.9% 2,000 ML IV ONE (17:00)
[2023-02-21 17:19] LABS: BASOPHILS # (AUTO) 0.1 K/uL (0.0-0.2); BASOPHILS % (AUTO) 0.9 % (0.0-2.0); EOSINOPHILS % (AUTO) 0.4 % (0.0-4.0); HEMOGLOBIN 14.3 g/dL (14.0-18.0); LYMPHOCYTES # (AUTO) 1.7 K/uL (1.0-5.5); LYMPHOCYTES % (AUTO) 20.1 % (20.5-51.5); MEAN CORPUSCULAR HEMOGLOBIN 37 pg (27-31); MEAN CORPUSCULAR HGB CONC 35 % (32-36); MEAN CORPUSCULAR VOLUME 107 fL (79.0-98.0); MONOCYTES # (AUTO) 0.4 K/uL (0.0-1.0); MONOCYTES % (AUTO) 5.2 % (1.7-9.3); NEUTROPHILS % (AUTO) 73.4 % (40.0-70.0); PLATELET COUNT (AUTO) 165 K/uL (130-430); RED BLOOD CELL COUNT(AUTO) 3.84 MIL/uL (4.2-6.2); RED CELL DISTRIBUTION WIDTH 16.5 % (9.0-15.0); WHITE BLOOD COUNT (AUTO) 8.2 K/uL (4.8-10.8)
[2023-02-21 17:34] LABS: INR 1.1 (0.80-1.20); PROTHROMBIN TIME 10.9 SECS (9.5-12.5)
[2023-02-21 17:35] LABS: ANION GAP 24 (5-15); CALCIUM 8.5 mg/dL (8.4-11.0); CHLORIDE 100 mmol/L (98-107); CREATININE 1.24 mg/dL (0.55-1.30); GFR AFRICAN AMERICAN 75 mL/min (>90); GLUCOSE 115 mg/dL (70-99); UREA NITROGEN, BLOOD 12 mg/dL (8-21)
[2023-02-21 17:39] LABS: ALANINE AMINOTRANSFERASE 28 U/L (12-78); ALBUMIN 3.9 g/dL (3.4-4.8); ALCOHOL, BLOOD 5 mg/dL (<10); AMYLASE 61 U/L (0-100); ASPARTATE AMINOTRANSFERASE 35 U/L (10-37); LIPASE 209 U/L (73-393); TOTAL BILIRUBIN 1.2 mg/dL (0.0-1.0)
[2023-02-21 18:04] LABS: ACETONE, SERUM TRACE (NEGATIVE)
[2023-02-21] MEDS ORDERED: THIAMINE HCL 100 MG in NS 50 ML IV ONE (18:15)
[2023-02-21] MEDS ORDERED: FOLIC ACID 5 MG/ML VIAL IV ONE (18:15)
[2023-02-21] MEDS ORDERED: D5NS 1,000 ML IV ONE (18:30)
[2023-02-21] MEDS ORDERED: THIAMINE HCL 100 MG/ML VIAL ONE (18:36)
[2023-02-21] MEDS ORDERED: POTASSIUM CHLORIDE 20 MEQ TAB.PRT.SR ONE (21:29)
[2023-02-21] MEDS ORDERED: POTASSIUM CHLORIDE 20 MEQ TAB.PRT.SR PO ONE (21:30)
[2023-02-21 21:57] VITALS: BP_SYST 142
[2023-02-21] MEDS ORDERED: ONDANSETRON HCL 4 MG/2 ML VIAL IVP PRN (22:45)
[2023-02-21] MEDS ORDERED: D5NS 1,000 ML IV SCH (22:45)
[2023-02-22] MEDS: chlordiazePOXIDE HCL 25 MG CAPSULE PO PRN ×2 (04:28→23:35)
[2023-02-22 06:39] LABS: BASOPHILS # (AUTO) 0.1 K/uL (0.0-0.2); BASOPHILS % (AUTO) 1.1 % (0.0-2.0); EOSINOPHILS # (AUTO) 0.1 K/uL (0.0-0.4); EOSINOPHILS % (AUTO) 2.4 % (0.0-4.0); HEMATOCRIT 37.6 % (36-54); HEMOGLOBIN 12.9 g/dL (14.0-18.0); LYMPHOCYTES # (AUTO) 1.8 K/uL (1.0-5.5); LYMPHOCYTES % (AUTO) 28.7 % (20.5-51.5); MEAN CORPUSCULAR HEMOGLOBIN 36 pg (27-31); MEAN CORPUSCULAR HGB CONC 34 % (32-36); MEAN CORPUSCULAR VOLUME 106 fL (79.0-98.0); MONOCYTES # (AUTO) 0.5 K/uL (0.0-1.0); MONOCYTES % (AUTO) 7.8 % (1.7-9.3); NEUTROPHILS # (AUTO) 3.7 K/uL (1.8-7.7); PLATELET COUNT (AUTO) 122 K/uL (130-430); RED BLOOD CELL COUNT(AUTO) 3.55 MIL/uL (4.2-6.2); RED CELL DISTRIBUTION WIDTH 15.9 % (9.0-15.0); WHITE BLOOD COUNT (AUTO) 6.2 K/uL (4.8-10.8)
[2023-02-22 07:19] LABS: ALBUMIN 3.1 g/dL (3.4-4.8); CALCIUM 7.8 mg/dL (8.4-11.0); CREATININE 0.73 mg/dL (0.55-1.30); PHOSPHORUS 3.4 mg/dL (2.7-4.5); TOTAL BILIRUBIN 1.1 mg/dL (0.0-1.0)
[2023-02-22] MEDS: FOLIC ACID 1 MG TABLET PO SCH (08:44)
[2023-02-22] MEDS: ALLOPURINOL 300 MG TABLET (ZYLOPRIM) PO SCH (08:44)
[2023-02-22] MEDS: THIAMINE HCL 100 MG TABLET PO SCH (08:44)
[2023-02-22] MEDS ORDERED: POTASSIUM CHLORIDE 40 MEQ in NS 250 ML IV ONE (08:45)
[2023-02-22] MEDS: FLUoxetine HCL 20 MG CAPSULE (PROzac) PO SCH (08:45)
[2023-02-22] MEDS: LORazepam 2 MG/ML VIAL IVP PRN ×3 (08:46→21:10)
[2023-02-22] MEDS: MULTIVITAMINS TAB 1 TABLET PO SCH (08:56)
[2023-02-22] MEDS: NALTREXONE HCL 50 MG PO SCH (09:00)
[2023-02-22] MEDS ORDERED: NALTREXONE HCL 50 MG PO SCH (09:00)
[2023-02-22] MEDS: ACAMPROSATE CALCIUM 333 MG TABLET.DR PO SCH ×3 (09:00→20:53)
[2023-02-22] MEDS ORDERED: FOLIC ACID 1 MG TABLET PO SCH (11:15)
[2023-02-22] MEDS ORDERED: ONDANSETRON HCL 4 MG/2 ML VIAL IVP PRN (11:15)
[2023-02-22 11:34] VITALS: BP_SYST 132
[2023-02-22 15:05] VITALS: BP_SYST 132
[2023-02-22 15:44] VITALS: BP_SYST 124
[2023-02-22 16:00] VITALS: BP_SYST 124
[2023-02-22] MEDS: NORMAL SALINE 5 ML DISP.SYRIN IVF SCH ×2 (16:39→20:55)
[2023-02-22 20:00] VITALS: BP_SYST 123
[2023-02-23] VITALS: BP_SYST 125
[2023-02-23] MEDS: NORMAL SALINE 5 ML DISP.SYRIN IVF SCH ×3 (05:07→22:09)
[2023-02-23] MEDS: LORazepam 2 MG/ML VIAL IVP PRN ×4 (05:13→22:42)
[2023-02-23 06:17] LABS: CALCIUM 8.8 mg/dL (8.4-11.0); CREATININE 0.72 mg/dL (0.55-1.30)
[2023-02-23 07:37] LABS: BASOPHILS # (AUTO) 0.1 K/uL (0.0-0.2); BASOPHILS % (AUTO) 0.8 % (0.0-2.0); EOSINOPHILS # (AUTO) 0.2 K/uL (0.0-0.4); HEMATOCRIT 40.4 % (36-54); HEMOGLOBIN 13.6 g/dL (14.0-18.0); LYMPHOCYTES # (AUTO) 1.5 K/uL (1.0-5.5); LYMPHOCYTES % (AUTO) 20.9 % (20.5-51.5); MEAN CORPUSCULAR HEMOGLOBIN 36 pg (27-31); MEAN CORPUSCULAR HGB CONC 34 % (32-36); MEAN CORPUSCULAR VOLUME 107 fL (79.0-98.0); MONOCYTES # (AUTO) 0.5 K/uL (0.0-1.0); MONOCYTES % (AUTO) 6.5 % (1.7-9.3); NEUTROPHILS # (AUTO) 4.8 K/uL (1.8-7.7); NEUTROPHILS % (AUTO) 68.8 % (40.0-70.0); PLATELET COUNT (AUTO) 109 K/uL (130-430); RED BLOOD CELL COUNT(AUTO) 3.77 MIL/uL (4.2-6.2); RED CELL DISTRIBUTION WIDTH 15.9 % (9.0-15.0)
[2023-02-23 07:50] VITALS: BP_SYST 139
[2023-02-23] MEDS ORDERED: POTASSIUM CHLORIDE 20 MEQ TAB.PRT.SR PO ONE (08:15)
[2023-02-23] MEDS: ACAMPROSATE CALCIUM 333 MG TABLET.DR PO SCH ×4 (09:00→21:00)
[2023-02-23] MEDS: NALTREXONE HCL 50 MG PO SCH (09:00)
[2023-02-23] MEDS: FLUoxetine HCL 20 MG CAPSULE (PROzac) PO SCH (09:12)
[2023-02-23] MEDS: THIAMINE HCL 100 MG TABLET PO SCH (09:12)
[2023-02-23] MEDS: MULTIVITAMINS TAB 1 TABLET PO SCH (09:12)
[2023-02-23] MEDS: FOLIC ACID 1 MG TABLET PO SCH (09:12)
[2023-02-23] MEDS: ALLOPURINOL 300 MG TABLET (ZYLOPRIM) PO SCH (09:16)
[2023-02-23 11:57] VITALS: BP_SYST 140
[2023-02-23] MEDS: chlordiazePOXIDE HCL 25 MG CAPSULE PO PRN (12:05)
[2023-02-23 16:20] VITALS: BP_SYST 139
[2023-02-23 20:00] VITALS: BP_SYST 112
[2023-02-24 00:06] VITALS: BP_SYST 119
[2023-02-24 06:14] LABS: BASOPHILS % (AUTO) 0.7 % (0.0-2.0); EOSINOPHILS # (AUTO) 0.2 K/uL (0.0-0.4); EOSINOPHILS % (AUTO) 3.3 % (0.0-4.0); HEMATOCRIT 38.6 % (36-54); LYMPHOCYTES # (AUTO) 1.3 K/uL (1.0-5.5); LYMPHOCYTES % (AUTO) 21.1 % (20.5-51.5); MEAN CORPUSCULAR HEMOGLOBIN 36 pg (27-31); MEAN CORPUSCULAR HGB CONC 34 % (32-36); MEAN CORPUSCULAR VOLUME 107 fL (79.0-98.0); MONOCYTES # (AUTO) 0.6 K/uL (0.0-1.0); MONOCYTES % (AUTO) 10.1 % (1.7-9.3); NEUTROPHILS # (AUTO) 4.1 K/uL (1.8-7.7); NEUTROPHILS % (AUTO) 64.8 % (40.0-70.0); PLATELET COUNT (AUTO) 100 K/uL (130-430); RED BLOOD CELL COUNT(AUTO) 3.59 MIL/uL (4.2-6.2); RED CELL DISTRIBUTION WIDTH 16.3 % (9.0-15.0); WHITE BLOOD COUNT (AUTO) 6.4 K/uL (4.8-10.8)
[2023-02-24] MEDS: NORMAL SALINE 5 ML DISP.SYRIN IVF SCH ×2 (06:33→14:00)
[2023-02-24 06:40] LABS: ALBUMIN 3.2 g/dL (3.4-4.8); CALCIUM 9.3 mg/dL (8.4-11.0); CREATININE 0.72 mg/dL (0.55-1.30); TOTAL BILIRUBIN 0.6 mg/dL (0.0-1.0)
[2023-02-24 08:00] VITALS: BP_SYST 138
[2023-02-24] MEDS: ALLOPURINOL 300 MG TABLET (ZYLOPRIM) PO SCH (08:55)
[2023-02-24] MEDS: FOLIC ACID 1 MG TABLET PO SCH (08:55)
[2023-02-24] MEDS: FLUoxetine HCL 20 MG CAPSULE (PROzac) PO SCH (08:55)
[2023-02-24] MEDS: THIAMINE HCL 100 MG TABLET PO SCH (08:56)
[2023-02-24] MEDS: MULTIVITAMINS TAB 1 TABLET PO SCH (08:56)
[2023-02-24] MEDS: ACAMPROSATE CALCIUM 333 MG TABLET.DR PO SCH (09:00)
[2023-02-24] MEDS: NALTREXONE HCL 50 MG PO SCH (09:00)
[2023-02-24 13:49] VITALS: BP_SYST 138
== END 2023-02-24 14:13 | DRG 641 ==
LOC: SED 16:44 → STU 18:59 → SMU 21:40 → STU 22:42 → SMU 02-22 12:32
PROVIDERS: ADMIT Preventive Medicine Preventive Medicine/Occupational Environmental Medicine; ATTEND Preventive Medicine Preventive Medicine/Occupational Environmental Medicine
DX: E87.29 Other acidosis (principal); E87.6 Hypokalemia; E87.1 Hypo-osmolality and hyponatremia; F10.129 Alcohol abuse with intoxication, unspecified; R73.9 Hyperglycemia, unspecified; D69.6 Thrombocytopenia, unspecified; E88.09 Other disorders of plasma-protein metabolism, not elsewhere classified; F32.A Depression, unspecified; Z20.822 Contact with and (suspected) exposure to COVID-19; Z96.641 Presence of right artificial hip joint; Y90.0 Blood alcohol level of less than 20 mg/100 ml; Z90.49 Acquired absence of other specified parts of digestive tract; Z93.3 Colostomy status; Z91.013 Allergy to seafood
CPT/HCPCS: 36415; 71045; 80048; 80053; 82009; 82140; 82150; 83605; 83690; 83735; 84100; 85025; 85610-TC; 85730-TC; 93005; 97110-GP; 97116-GP; 97163-GP; 99285; G0378; G0482; J2060; J3411; J3480; J3490; J7050

== ENCOUNTER 2023-05-07 15:19 | Emergency (ER) | payer OTHER, MEDICARE ==
[~2023-05-07] VITALS: Ht 172.7 cm; Wt 59.0 kg
[2023-05-07 15:20] VITALS: BP_SYST 106
--- NOTE | 2023-05-07 15:20 | NUR ---
Placed in room 05 . Placed on ekg monitor tech, blood pressure machine and pulse oximeter. To gown for exam. Side rails up. Report given to AVINASH ACEVES.
--- NOTE | 2023-05-07 16:00 | NUR ---
ER at bedside examining patient.
[2023-05-07] MEDS ORDERED: NACL 0.9% 1,000 ML IV ONE (16:15)
--- NOTE | 2023-05-07 16:15 | NUR ---
Per request of pt contacted [facility] and was informed of allergy to shell fish, right hip surgery 2 years ago.
--- NOTE | 2023-05-07 16:35 | NUR ---
# 20 gauge angiocath placed to RIGHT WRIST. Use of asceptic technique. Opsite placed over site. Blood return noted. Blood for lab drawn from site. Flushed with 10 cc of normal saline. No evidence of infiltration noted. Patient tolerated well.
[2023-05-07 16:36] LABS: BASOPHILS # (AUTO) 0.1 K/uL (0.0-0.2); EOSINOPHILS # (AUTO) 0.1 K/uL (0.0-0.4); EOSINOPHILS % (AUTO) 1.8 % (0.0-4.0); HEMATOCRIT 39.6 % (36-54); HEMOGLOBIN 13.3 g/dL (14.0-18.0); LYMPHOCYTES # (AUTO) 2.2 K/uL (1.0-5.5); LYMPHOCYTES % (AUTO) 40.8 % (20.5-51.5); MEAN CORPUSCULAR HEMOGLOBIN 34 pg (27-31); MEAN CORPUSCULAR HGB CONC 34 % (32-36); MEAN CORPUSCULAR VOLUME 102 fL (79.0-98.0); MONOCYTES # (AUTO) 0.6 K/uL (0.0-1.0); MONOCYTES % (AUTO) 11.6 % (1.7-9.3); NEUTROPHILS # (AUTO) 2.4 K/uL (1.8-7.7); NEUTROPHILS % (AUTO) 44.8 % (40.0-70.0); PLATELET COUNT (AUTO) 142 K/uL (130-430); RED BLOOD CELL COUNT(AUTO) 3.88 MIL/uL (4.2-6.2); RED CELL DISTRIBUTION WIDTH 17.4 % (9.0-15.0); WHITE BLOOD COUNT (AUTO) 5.5 K/uL (4.8-10.8)
--- NOTE | 2023-05-07 16:42 | NUR ---
Medicated per MD orders. IVF infusing with no s/s of infiltration at this time. Will cont to monitor
[2023-05-07 16:48] LABS: ALBUMIN 3.5 g/dL (3.4-4.8); CALCIUM 8.6 mg/dL (8.4-11.0); CREATININE 0.93 mg/dL (0.55-1.30); PHOSPHORUS 2.2 mg/dL (2.7-4.5); TOTAL BILIRUBIN 0.4 mg/dL (0.0-1.0)
--- NOTE | 2023-05-07 17:51 | NUR ---
pt to CT via kristina
--- NOTE | 2023-05-07 17:55 | NUR ---
Pt returns from CT.
--- NOTE | 2023-05-07 18:01 | NUR ---
Pt provided phone bedside per his request to contact ex spouse.
[2023-05-07] MEDS ORDERED: FOLIC ACID 1 MG, THIAMINE HCL 100 MG, MAGNESIUM SULFATE 1 GM, MVI 10 ML in NACL 0.9% 1,... IV ONE (18:15)
[2023-05-07] MEDS ORDERED: MAGNESIUM SULFATE 1 GM/2 ML VIAL ONE (18:21)
[2023-05-07] MEDS ORDERED: MVI 10 ML VIAL IV ONE (18:21)
[2023-05-07] MEDS ORDERED: FOLIC ACID 5 MG/ML VIAL IV ONE (18:21)
[2023-05-07] MEDS ORDERED: THIAMINE HCL 100 MG/ML VIAL ONE (18:21)
--- NOTE | 2023-05-07 18:40 | NUR ---
Pt requests an Uber ride home to : [id number]. [place], [place].
--- NOTE | 2023-05-07 18:49 | NUR ---
Pt given food and "bananna bag" per md order.
--- NOTE | 2023-05-07 19:38 | NUR ---
RECIEVED REPORT FROM KETAN DA SILVA
[2023-05-07] MEDS ORDERED: METOPROLOL SUCCINATE 50 MG TAB.SR.24H (TOPROL XL) PO ONE (20:45)
[2023-05-07] MEDS ORDERED: METOPROLOL TARTRATE 5 MG/5 ML VIAL IVP ONE (20:45)
--- NOTE | 2023-05-07 20:48 | NUR ---
PT WAS ABLE TO WALK BACK AND FORTH FROM BED TO BATHROOM.
[2023-05-07 22:03] VITALS: BP_SYST 106
--- NOTE | 2023-05-07 22:04 | NUR ---
Patient given written and verbal discharge instructions and verbalizes understanding. ER MD discussed with patient the results and treatment provided. Patient in stable condition. ID arm band removed. IV catheter removed intact and dressing applied, no active bleeding. Rx of given. Patient educated on ALCOHOL USE DISORDER and to follow up with PMD. Pain Scale . Opportunity for questions provided and answered. Medication side effect fact sheet provided.
== END 2023-05-07 22:03 | disposition home or self-care (01) ==
LOC: SED 15:19
DX: F10.129 Alcohol abuse with intoxication, unspecified (principal); E83.42 Hypomagnesemia; E83.39 Other disorders of phosphorus metabolism; G93.89 Other specified disorders of brain; Z91.013 Allergy to seafood; Z79.899 Other long term (current) drug therapy; Y90.6 Blood alcohol level of 120-199 mg/100 ml
CPT/HCPCS: 99285; 70450; 96365; 96361; 96366; 80053; 83735; 84100; 85025; 36415; 93005; 72170; 72125; 76376; J3490; J3475; J3411; J7030

== ENCOUNTER 2023-06-07 11:19 | Inpatient (IN) | payer OTHER, MEDICARE ==
[~2023-06-07] VITALS: Ht 172.7 cm; Wt 75.1 kg
[2023-06-07 11:29] VITALS: BP_SYST 141; PULSE 106; RESP 18; TEMP 98.3; O2SAT 96
[2023-06-07] MEDS ORDERED: NACL 0.9% 1,000 ML IV ONE ×2 (11:45)
[2023-06-07] MEDS ORDERED: LORazepam 2 MG/ML VIAL IVP ONE (11:45)
[2023-06-07 12:14] LABS: BASOPHILS # (AUTO) 0.1 K/uL (0.0-0.2); EOSINOPHILS % (AUTO) 0.2 % (0.0-4.0); HEMATOCRIT 39.7 % (36-54); HEMOGLOBIN 13.3 g/dL (14.0-18.0); LYMPHOCYTES # (AUTO) 1.1 K/uL (1.0-5.5); LYMPHOCYTES % (AUTO) 15.8 % (20.5-51.5); MEAN CORPUSCULAR HEMOGLOBIN 35 pg (27-31); MEAN CORPUSCULAR HGB CONC 34 % (32-36); MEAN CORPUSCULAR VOLUME 103 fL (79.0-98.0); MONOCYTES # (AUTO) 1.3 K/uL (0.0-1.0); MONOCYTES % (AUTO) 18.3 % (1.7-9.3); NEUTROPHILS # (AUTO) 4.4 K/uL (1.8-7.7); NEUTROPHILS % (AUTO) 64.7 % (40.0-70.0); PLATELET COUNT (AUTO) 345 K/uL (130-430); RED BLOOD CELL COUNT(AUTO) 3.86 MIL/uL (4.2-6.2); RED CELL DISTRIBUTION WIDTH 16.4 % (9.0-15.0); WHITE BLOOD COUNT (AUTO) 6.8 K/uL (4.8-10.8)
[2023-06-07 12:33] LABS: ANION GAP 13 (5-15); CALCIUM 8.5 mg/dL (8.4-11.0); CARBON DIOXIDE 26 mmol/L (23-29); CHLORIDE 95 mmol/L (98-107); CREATININE 1.07 mg/dL (0.55-1.30); GFR AFRICAN AMERICAN 89 mL/min (>90); GLUCOSE 203 mg/dL (74-106); POTASSIUM 3.6 mmol/L (3.5-5.1); SODIUM SERUM 134 mmol/L (136-145); UREA NITROGEN, BLOOD 10 mg/dL (8-21)
[2023-06-07 12:35] LABS: GFR NON AFRICAN-AMERICAN 74 mL/min (>90)
[2023-06-07 12:40] LABS: ALANINE AMINOTRANSFERASE 145 U/L (12-78); ALBUMIN 3.5 g/dL (3.4-4.8); ASPARTATE AMINOTRANSFERASE 102 U/L (10-37); CREATINE KINASE, TOTAL 62 U/L (39-308); TOTAL BILIRUBIN 0.9 mg/dL (0.0-1.0); TOTAL PROTEIN, SERUM 6.8 g/dL (6.4-8.3)
[2023-06-07] MEDS ORDERED: FOLIC ACID 1 MG, THIAMINE HCL 100 MG, MAGNESIUM SULFATE 1 GM, MVI 10 ML in NACL 0.9% 1,... IV ONE (13:30)
[2023-06-07] MEDS ORDERED: FOLIC ACID 1 MG, MVI 10 ML in NACL 0.9% 1,000 ML IV ONE (15:15)
[2023-06-07] MEDS ORDERED: THIAMINE HCL 100 MG, MAGNESIUM SULFATE 1 GM in NS 100 ML IV ONE (15:15)
[2023-06-07] MEDS: chlordiazePOXIDE HCL 25 MG CAPSULE PO SCH ×2 (15:23→20:38)
[2023-06-07] MEDS ORDERED: MAGNESIUM SULFATE 50 ML IV PRN (15:45)
[2023-06-07] MEDS ORDERED: POTASSIUM CHLORIDE 20 MEQ TAB.PRT.SR PO PRN (15:45)
[2023-06-07] MEDS ORDERED: ZOLPIDEM TARTRATE 5 MG TABLET PO PRN (15:45)
[2023-06-07] MEDS ORDERED: ONDANSETRON HCL 4 MG/2 ML VIAL IVP PRN (15:45)
[2023-06-07] MEDS ORDERED: ACETAMINOPHEN 325 MG TABLET PO PRN ×2 (15:45→16:00)
[2023-06-07] MEDS ORDERED: DOCUSATE SODIUM 100 MG CAPSULE PO PRN (15:45)
[2023-06-07] MEDS ORDERED: MUPIROCIN 2% TOPICAL OINTMENT 22 GM NS PRN (15:45)
[2023-06-07 16:21] LABS: PROTHROMBIN TIME 10.4 SECS (9.5-12.5)
[2023-06-07 16:22] LABS: AMYLASE 106 U/L (0-100); LIPASE 303 U/L (73-393)
[2023-06-07] MEDS: NACL 0.9% 1,000 ML IV SCH (19:32)
[2023-06-07 20:00] VITALS: BP_SYST 122; PULSE 65; RESP 17; TEMP 97.4; O2SAT 97
[2023-06-07] MEDS: HEPARIN SODIUM,PORCINE 5,000 UNITS/ML VIAL SUBCUT SCH (20:40)
[2023-06-07 21:35] VITALS: BP_SYST 122; PULSE 65; RESP 17; TEMP 97.4
[2023-06-07 22:25] LABS: BILIRUBIN,URINE NEGATIVE (NEGATIVE); BLOOD, URINE NEGATIVE (NEGATIVE); CLARITY/URINE CLEAR (CLEAR); COLOR,URINE YELLOW (YELLOW); GLUCOSE,URINE NEGATIVE (NEGATIVE); KETONES,URINE TRACE (NEGATIVE); LEUKOCYTE ESTERASE ,URINE NEGATIVE (NEGATIVE); NITRITE, URINE NEGATIVE (NEGATIVE); PH,URINE 7.5 (5.0-8.0); PROTEIN URINE NEGATIVE (NEGATIVE)
[2023-06-08] VITALS (7 sets, daily range): BP systolic 128–143; PULSE 60–92; RESP 17–19; TEMP 97.9–98.6; O2SAT 96–98
[2023-06-08] MEDS: NACL 0.9% 1,000 ML IV SCH ×2 (05:04→15:16)
[2023-06-08 05:07] LABS: BASOPHILS # (AUTO) 0.2 K/uL (0.0-0.2); BASOPHILS % (AUTO) 2.9 % (0.0-2.0); EOSINOPHILS # (AUTO) 0.1 K/uL (0.0-0.4); EOSINOPHILS % (AUTO) 2.1 % (0.0-4.0); HEMATOCRIT 36.5 % (36-54); HEMOGLOBIN 12.3 g/dL (14.0-18.0); LYMPHOCYTES % (AUTO) 36.7 % (20.5-51.5); MEAN CORPUSCULAR HEMOGLOBIN 35 pg (27-31); MEAN CORPUSCULAR HGB CONC 34 % (32-36); MEAN CORPUSCULAR VOLUME 103 fL (79.0-98.0); MONOCYTES # (AUTO) 0.9 K/uL (0.0-1.0); MONOCYTES % (AUTO) 16.7 % (1.7-9.3); NEUTROPHILS # (AUTO) 2.2 K/uL (1.8-7.7); NEUTROPHILS % (AUTO) 41.6 % (40.0-70.0); PLATELET COUNT (AUTO) 320 K/uL (130-430); RED BLOOD CELL COUNT(AUTO) 3.55 MIL/uL (4.2-6.2); RED CELL DISTRIBUTION WIDTH 16.4 % (9.0-15.0); WHITE BLOOD COUNT (AUTO) 5.3 K/uL (4.8-10.8)
[2023-06-08 05:24] LABS: CALCIUM 7.8 mg/dL (8.4-11.0); CREATININE 0.61 mg/dL (0.55-1.30)
[2023-06-08] MEDS: FLUoxetine HCL 20 MG CAPSULE (PROzac) PO SCH (08:18)
[2023-06-08] MEDS: THIAMINE HCL 100 MG TABLET PO SCH (08:19)
[2023-06-08] MEDS: ALLOPURINOL 300 MG TABLET (ZYLOPRIM) PO SCH (08:19)
[2023-06-08] MEDS: chlordiazePOXIDE HCL 25 MG CAPSULE PO SCH ×3 (08:19→20:44)
[2023-06-08] MEDS: FOLIC ACID 1 MG TABLET PO SCH (08:20)
[2023-06-08] MEDS: HEPARIN SODIUM,PORCINE 5,000 UNITS/ML VIAL SUBCUT SCH ×2 (08:25→20:46)
[2023-06-08] MEDS: LORazepam 2 MG/ML VIAL IVP PRN ×4 (08:49→21:24)
[2023-06-08] MEDS ORDERED: THIAMINE HCL PO SCH (09:00)
[2023-06-08] MEDS ORDERED: MAGNESIUM SULFATE 4 GM in D5W 250 ML IV ONE (11:00)
[2023-06-09] VITALS: BP_SYST 124; PULSE 74; RESP 18; TEMP 98.4; O2SAT 96
[2023-06-09] MEDS: NACL 0.9% 1,000 ML IV SCH (02:39)
[2023-06-09 05:31] LABS: BASOPHILS # (AUTO) 0.1 K/uL (0.0-0.2); BASOPHILS % (AUTO) 1.9 % (0.0-2.0); EOSINOPHILS # (AUTO) 0.2 K/uL (0.0-0.4); HEMATOCRIT 35.9 % (36-54); HEMOGLOBIN 11.8 g/dL (14.0-18.0); LYMPHOCYTES # (AUTO) 1.8 K/uL (1.0-5.5); LYMPHOCYTES % (AUTO) 31.7 % (20.5-51.5); MEAN CORPUSCULAR HEMOGLOBIN 34 pg (27-31); MEAN CORPUSCULAR HGB CONC 33 % (32-36); MEAN CORPUSCULAR VOLUME 104 fL (79.0-98.0); MONOCYTES # (AUTO) 0.5 K/uL (0.0-1.0); MONOCYTES % (AUTO) 9.7 % (1.7-9.3); NEUTROPHILS % (AUTO) 53.7 % (40.0-70.0); PLATELET COUNT (AUTO) 278 K/uL (130-430); RED BLOOD CELL COUNT(AUTO) 3.45 MIL/uL (4.2-6.2); RED CELL DISTRIBUTION WIDTH 16.2 % (9.0-15.0); WHITE BLOOD COUNT (AUTO) 5.6 K/uL (4.8-10.8)
[2023-06-09 05:44] LABS: CALCIUM 7.7 mg/dL (8.4-11.0); CREATININE 0.72 mg/dL (0.55-1.30); POTASSIUM 3.5 mmol/L (3.5-5.1)
[2023-06-09] MEDS: LORazepam 2 MG/ML VIAL IVP PRN ×2 (06:19→10:19)
[2023-06-09 07:38] VITALS: BP_SYST 129; PULSE 76; RESP 20; TEMP 97.2; O2SAT 99
[2023-06-09] MEDS: FLUoxetine HCL 20 MG CAPSULE (PROzac) PO SCH (08:21)
[2023-06-09] MEDS: chlordiazePOXIDE HCL 25 MG CAPSULE PO SCH (08:21)
[2023-06-09] MEDS: FOLIC ACID 1 MG TABLET PO SCH (08:21)
[2023-06-09] MEDS: THIAMINE HCL 100 MG TABLET PO SCH (08:21)
[2023-06-09] MEDS: HEPARIN SODIUM,PORCINE 5,000 UNITS/ML VIAL SUBCUT SCH (08:26)
[2023-06-09] MEDS: ALLOPURINOL 300 MG TABLET (ZYLOPRIM) PO SCH (08:29)
[2023-06-09 10:00] VITALS: O2SAT 97
[2023-06-09] MEDS ORDERED: LIB25 PO (10:51)
[2023-06-09 11:30] VITALS: BP_SYST 140; PULSE 91; RESP 16; TEMP 97.8; O2SAT 97
[2023-06-09 14:55] VITALS: BP_SYST 148; PULSE 90; RESP 18; TEMP 97.2; O2SAT 98
[2023-06-09 16:14] VITALS: BP_SYST 148; PULSE 90; RESP 18; TEMP 97.2; O2SAT 98
== END 2023-06-09 17:15 | disposition home health service (06) | DRG 897 ==
LOC: SED 11:19 → STU 13:17
PROVIDERS: ADMIT General Practice; ATTEND General Practice
DX: F10.231 Alcohol dependence with withdrawal delirium (principal); E87.20 Acidosis, unspecified; E83.42 Hypomagnesemia; Y90.9 Presence of alcohol in blood, level not specified; F32.A Depression, unspecified; E87.6 Hypokalemia; M10.9 Gout, unspecified; F41.9 Anxiety disorder, unspecified; Z88.5 Allergy status to narcotic agent; Z91.013 Allergy to seafood; Z79.899 Other long term (current) drug therapy
CPT/HCPCS: 36415; 71045; 80048; 80053; 81003; 82150; 82550; 83037; 83605; 83690; 83735; 84484; 85025; 85610-TC; 96361; 96365; 96368; 96375; 97116-GP; 97530-GP; 99285; G0378; J1644; J2060; J3411; J3475; J3490; J7030; J7060

== ENCOUNTER 2023-06-16 16:00 | Emergency (ER) | payer OTHER, MEDICARE ==
[~2023-06-16] VITALS: Ht 172.7 cm; Wt 63.5 kg
[2023-06-16 16:11] VITALS: BP_SYST 106; PULSE 116; RESP 19; TEMP 99.3; O2SAT 98
--- NOTE | 2023-06-16 16:14 | NUR ---
Patient triaged and on gurney with [facility] EMT's. VSS and patient appears in no acute distress at this time. Awaiting available bed, and MD notified of need for MSE.
[2023-06-16] MEDS ORDERED: LORazepam 2 MG/ML VIAL IVP ONE (16:45)
[2023-06-16] MEDS ORDERED: ONDANSETRON HCL 4 MG/2 ML VIAL IVP ONE (16:45)
[2023-06-16] MEDS ORDERED: NACL 0.9% 1,000 ML IV ONE (16:45)
[2023-06-16] MEDS ORDERED: cloNIDine HCL 0.1 MG TABLET PO ONE (16:45)
--- NOTE | 2023-06-16 16:45 | NUR ---
Patient BIB ambulance from home. Patient placed in bed 5 at 1810. Chief Complaint: Alcohol Withdrawls, patient states performing self monitored alcohol detoxification and a wellness check was performed by the police department and an ambulance was called for him. Patient a&ox4 and stable.
[2023-06-16 17:04] LABS: BASOPHILS # (AUTO) 0.1 K/uL (0.0-0.2); EOSINOPHILS # (AUTO) 0.1 K/uL (0.0-0.4); EOSINOPHILS % (AUTO) 1.3 % (0.0-4.0); HEMATOCRIT 36.6 % (36-54); HEMOGLOBIN 12.3 g/dL (14.0-18.0); LYMPHOCYTES # (AUTO) 2.4 K/uL (1.0-5.5); LYMPHOCYTES % (AUTO) 48.9 % (20.5-51.5); MEAN CORPUSCULAR HEMOGLOBIN 35 pg (27-31); MEAN CORPUSCULAR HGB CONC 34 % (32-36); MEAN CORPUSCULAR VOLUME 104 fL (79.0-98.0); MONOCYTES # (AUTO) 0.6 K/uL (0.0-1.0); MONOCYTES % (AUTO) 11.8 % (1.7-9.3); NEUTROPHILS # (AUTO) 1.8 K/uL (1.8-7.7); PLATELET COUNT (AUTO) 273 K/uL (130-430); RED BLOOD CELL COUNT(AUTO) 3.53 MIL/uL (4.2-6.2); RED CELL DISTRIBUTION WIDTH 16.3 % (9.0-15.0)
[2023-06-16 17:17] LABS: ALBUMIN 3.2 g/dL (3.4-4.8); CALCIUM 8.7 mg/dL (8.4-11.0); CREATININE 0.83 mg/dL (0.55-1.30); TOTAL BILIRUBIN 0.2 mg/dL (0.0-1.0)
--- NOTE | 2023-06-16 18:10 | NUR ---
Glendy HUYNH given report on IVP medications.
--- NOTE | 2023-06-16 18:30 | NUR ---
Patient taken a tray of food.
[2023-06-16 18:35] LABS: BILIRUBIN,URINE NEGATIVE (NEGATIVE); BLOOD, URINE NEGATIVE (NEGATIVE); CLARITY/URINE CLEAR (CLEAR); COLOR,URINE YELLOW (YELLOW); GLUCOSE,URINE NEGATIVE (NEGATIVE); KETONES,URINE NEGATIVE (NEGATIVE); LEUKOCYTE ESTERASE ,URINE NEGATIVE (NEGATIVE); NITRITE, URINE NEGATIVE (NEGATIVE); PROTEIN URINE NEGATIVE (NEGATIVE); UROBILINOGEN,URINE 0.2 (0.2-1.0)
[2023-06-16 18:48] LABS: BARBITURATE, URINE NEGATIVE (NEG <=200); BENZODIAZEPINE, URINE POSITIVE (NEG <=150); CANNABINOID, URINE NEGATIVE (NEG <=50); COCAINE, URINE NEGATIVE (NEG <=150); METHAMPHETAMINES SCREEN,URINE NEGATIVE (NEG <=500); OPIATE, URINE NEGATIVE (NEG <=100); PHENCYCLIDINE SCREEN,URINE NEGATIVE (NEG <=25); UR TRICYCLIC ANTIDEPRESSANTS NEGATIVE (NEG <=300); URINE AMPHETAMINE NEGATIVE (NEG <=500); URINE METHADONE NEGATIVE (NEG <=200); URINE OXYCODONE SCREEN NEGATIVE (NEG <=100); URINE PROPOXYPHENE SCREEN NEGATIVE (NEG <=300)
--- NOTE | 2023-06-16 19:40 | NUR ---
Recieved pt from edna yoon from day shift. pt in room 5 on the monitor. pt states "i feel way better now". pt is gcs 15 eyes open spontaneously. pt is alert and oriented to person, place, time, and situation. pt obeys commands. plan of care continues.
[2023-06-16] MEDS ORDERED: LIB25 PO (19:48)
[2023-06-16 20:25] VITALS: BP_SYST 104; PULSE 89; RESP 20; TEMP 97.7; O2SAT 95
--- NOTE | 2023-06-16 20:29 | NUR ---
Patient given written and verbal discharge instructions and verbalizes understanding. ER MD discussed with patient the results and treatment provided. Patient in stable condition. ID arm band removed. IV catheter removed intact and dressing applied, no active bleeding. Rx of chlordiazepoxide hcl given. Patient educated on pain management and to follow up with PMD. Pain Scale 2 out of 10. Opportunity for questions provided and answered. Medication side effect fact sheet provided.
== END 2023-06-16 20:25 | disposition home or self-care (01) ==
LOC: SED 16:00
DX: F10.239 Alcohol dependence with withdrawal, unspecified (principal); F41.9 Anxiety disorder, unspecified; R53.1 Weakness; R11.0 Nausea; Z91.013 Allergy to seafood; Z79.899 Other long term (current) drug therapy; Y90.6 Blood alcohol level of 120-199 mg/100 ml
CPT/HCPCS: 99284; 96374; 96361; 96375; 80307; 80053; 85025; 87040; 87086; 36415; 83605; 81003; J2060; J2405; J7030; G0482

== ENCOUNTER 2023-06-18 16:10 | Inpatient (IN) | payer OTHER, MEDICARE ==
[~2023-06-18] VITALS: Ht 172.7 cm; Wt 65.4 kg
[2023-06-18 16:12] VITALS: RESP 20; TEMP 98.2; O2SAT 94
[2023-06-18] MEDS ORDERED: NACL 0.9% 1,000 ML IV ONE (17:00)
[2023-06-18] MEDS ORDERED: LORazepam 2 MG/ML VIAL IVP ONE (17:00)
[2023-06-18 17:10] LABS: BASOPHILS % (AUTO) 0.4 % (0.0-2.0); EOSINOPHILS # (AUTO) 0.1 K/uL (0.0-0.4); EOSINOPHILS % (AUTO) 1.3 % (0.0-4.0); HEMATOCRIT 36.5 % (36-54); HEMOGLOBIN 12.2 g/dL (14.0-18.0); LYMPHOCYTES # (AUTO) 1.8 K/uL (1.0-5.5); MEAN CORPUSCULAR HEMOGLOBIN 34 pg (27-31); MEAN CORPUSCULAR HGB CONC 34 % (32-36); MEAN CORPUSCULAR VOLUME 103 fL (79.0-98.0); MONOCYTES # (AUTO) 0.6 K/uL (0.0-1.0); MONOCYTES % (AUTO) 11.8 % (1.7-9.3); NEUTROPHILS # (AUTO) 2.3 K/uL (1.8-7.7); NEUTROPHILS % (AUTO) 48.5 % (40.0-70.0); PLATELET COUNT (AUTO) 268 K/uL (130-430); RED BLOOD CELL COUNT(AUTO) 3.55 MIL/uL (4.2-6.2); RED CELL DISTRIBUTION WIDTH 16.1 % (9.0-15.0); WHITE BLOOD COUNT (AUTO) 4.8 K/uL (4.8-10.8)
[2023-06-18 17:35] LABS: ALANINE AMINOTRANSFERASE 46 U/L (12-78); ALBUMIN 3.1 g/dL (3.4-4.8); ALCOHOL, BLOOD 324 mg/dL (<10); ANION GAP 11 (5-15); ASPARTATE AMINOTRANSFERASE 42 U/L (10-37); CALCIUM 8.4 mg/dL (8.4-11.0); CHLORIDE 105 mmol/L (98-107); CREATININE 0.87 mg/dL (0.55-1.30); GFR AFRICAN AMERICAN 113 mL/min (>90); GLUCOSE 106 mg/dL (74-106); TOTAL BILIRUBIN 0.3 mg/dL (0.0-1.0); UREA NITROGEN, BLOOD 13 mg/dL (8-21)
[2023-06-18 17:39] LABS: ACETAMINOPHEN < 1 ug/mL (1-30)
[2023-06-18] MEDS ORDERED: LORazepam 2 MG/ML VIAL IM ONE (20:15)
[2023-06-18] MEDS ORDERED: FOLIC ACID 1 MG, THIAMINE HCL 100 MG, MAGNESIUM SULFATE 1 GM, MVI 10 ML in NACL 0.9% 1,... IV SCH (20:15)
[2023-06-18 22:36] VITALS: BP_SYST 137; PULSE 103; RESP 18; TEMP 97.6
[2023-06-18 23:00] VITALS: O2SAT 94
[2023-06-19] MEDS ORDERED: MAGNESIUM SULFATE 1 GM/2 ML VIAL ONE (00:34)
[2023-06-19] MEDS ORDERED: THIAMINE HCL 100 MG/ML VIAL ONE (00:34)
[2023-06-19] MEDS ORDERED: MVI 10 ML VIAL IV ONE ×2 (00:34→01:08)
[2023-06-19] MEDS ORDERED: cefTRIAXone 1 GM IVPB PREMIX 50 ML IV ONE (00:50)
[2023-06-19] MEDS ORDERED: chlordiazePOXIDE HCL 25 MG CAPSULE ONE (01:58)
[2023-06-19 05:23] LABS: BASOPHILS # (AUTO) 0.1 K/uL (0.0-0.2); BASOPHILS % (AUTO) 2.4 % (0.0-2.0); EOSINOPHILS # (AUTO) 0.1 K/uL (0.0-0.4); EOSINOPHILS % (AUTO) 2.1 % (0.0-4.0); HEMATOCRIT 32.1 % (36-54); HEMOGLOBIN 10.9 g/dL (14.0-18.0); LYMPHOCYTES # (AUTO) 1.6 K/uL (1.0-5.5); LYMPHOCYTES % (AUTO) 38.1 % (20.5-51.5); MEAN CORPUSCULAR HEMOGLOBIN 35 pg (27-31); MEAN CORPUSCULAR HGB CONC 34 % (32-36); MEAN CORPUSCULAR VOLUME 103 fL (79.0-98.0); MONOCYTES # (AUTO) 0.6 K/uL (0.0-1.0); MONOCYTES % (AUTO) 12.9 % (1.7-9.3); NEUTROPHILS # (AUTO) 1.9 K/uL (1.8-7.7); NEUTROPHILS % (AUTO) 44.5 % (40.0-70.0); PLATELET COUNT (AUTO) 230 K/uL (130-430); RED BLOOD CELL COUNT(AUTO) 3.12 MIL/uL (4.2-6.2); RED CELL DISTRIBUTION WIDTH 16.1 % (9.0-15.0); WHITE BLOOD COUNT (AUTO) 4.3 K/uL (4.8-10.8)
[2023-06-19 06:11] LABS: ALBUMIN 2.7 g/dL (3.4-4.8); CALCIUM 7.7 mg/dL (8.4-11.0); CREATININE 0.73 mg/dL (0.55-1.30); TOTAL BILIRUBIN 0.3 mg/dL (0.0-1.0)
[2023-06-19] MEDS ORDERED: FLUO40CA49 PO (07:04)
[2023-06-19 08:25] VITALS: BP_SYST 137; PULSE 94; RESP 16; TEMP 97.3; O2SAT 98
[2023-06-19] MEDS ORDERED: NALTREXONE HCL 50 MG PO SCH (09:00)
[2023-06-19] MEDS: chlordiazePOXIDE HCL 25 MG CAPSULE PO SCH ×4 (09:13→21:17)
[2023-06-19] MEDS: FOLIC ACID 1 MG TABLET PO SCH (09:13)
[2023-06-19] MEDS: THIAMINE HCL 100 MG TABLET PO SCH (09:13)
[2023-06-19] MEDS: ALLOPURINOL 300 MG TABLET (ZYLOPRIM) PO SCH (09:14)
[2023-06-19] MEDS: FLUoxetine HCL 20 MG CAPSULE (PROzac) PO SCH (09:14)
[2023-06-19 11:36] VITALS: BP_SYST 124; PULSE 90; RESP 17; TEMP 97.7; O2SAT 97
[2023-06-19 17:16] VITALS: BP_SYST 121; PULSE 84; RESP 18; TEMP 97.4; O2SAT 96
[2023-06-19 20:00] VITALS: BP_SYST 110; PULSE 75; RESP 18; TEMP 99.4; O2SAT 96
[2023-06-19] MEDS ORDERED: FOLIC ACID 1 MG, MVI 10 ML in NACL 0.9% 1,000 ML IV SCH (21:00)
[2023-06-19] MEDS ORDERED: THIAMINE HCL 100 MG, MAGNESIUM SULFATE 1 GM in NS 100 ML IV SCH (21:00)
[2023-06-20 00:55] VITALS: BP_SYST 126; PULSE 73; RESP 18; TEMP 98.6; O2SAT 96
[2023-06-20 05:11] LABS: BASOPHILS # (AUTO) 0.1 K/uL (0.0-0.2); BASOPHILS % (AUTO) 1.2 % (0.0-2.0); EOSINOPHILS # (AUTO) 0.2 K/uL (0.0-0.4); EOSINOPHILS % (AUTO) 3.4 % (0.0-4.0); HEMATOCRIT 33.1 % (36-54); HEMOGLOBIN 11.2 g/dL (14.0-18.0); LYMPHOCYTES % (AUTO) 31.5 % (20.5-51.5); MEAN CORPUSCULAR HEMOGLOBIN 35 pg (27-31); MEAN CORPUSCULAR HGB CONC 34 % (32-36); MEAN CORPUSCULAR VOLUME 104 fL (79.0-98.0); MONOCYTES # (AUTO) 0.5 K/uL (0.0-1.0); MONOCYTES % (AUTO) 7.3 % (1.7-9.3); NEUTROPHILS # (AUTO) 3.6 K/uL (1.8-7.7); NEUTROPHILS % (AUTO) 56.6 % (40.0-70.0); PLATELET COUNT (AUTO) 216 K/uL (130-430); RED CELL DISTRIBUTION WIDTH 15.9 % (9.0-15.0); WHITE BLOOD COUNT (AUTO) 6.4 K/uL (4.8-10.8)
[2023-06-20 05:56] LABS: ALBUMIN 2.7 g/dL (3.4-4.8); CALCIUM 7.7 mg/dL (8.4-11.0); CREATININE 0.8 mg/dL (0.55-1.30); TOTAL BILIRUBIN 0.9 mg/dL (0.0-1.0)
[2023-06-20 07:47] VITALS: BP_SYST 143; PULSE 74; RESP 20; TEMP 98.1; O2SAT 74
[2023-06-20] MEDS: THIAMINE HCL 100 MG TABLET PO SCH (08:07)
[2023-06-20] MEDS: FOLIC ACID 1 MG TABLET PO SCH (08:07)
[2023-06-20] MEDS: ALLOPURINOL 300 MG TABLET (ZYLOPRIM) PO SCH (08:07)
[2023-06-20] MEDS: chlordiazePOXIDE HCL 25 MG CAPSULE PO SCH ×2 (08:07→12:38)
[2023-06-20] MEDS: FLUoxetine HCL 20 MG CAPSULE (PROzac) PO SCH (08:08)
[2023-06-20 08:50] VITALS: O2SAT 98
[2023-06-20] MEDS ORDERED: NALTREXONE HCL 50 MG PO SCH (09:00)
[2023-06-20] MEDS: LORazepam 2 MG/ML VIAL IVP PRN ×2 (11:24→13:32)
[2023-06-20 12:46] VITALS: BP_SYST 132; PULSE 86; RESP 18; TEMP 98.7; O2SAT 96
[2023-06-20 13:00] VITALS: BP_SYST 132; PULSE 86; RESP 18; TEMP 98.7; O2SAT 96
== END 2023-06-20 14:53 | DRG 897 ==
LOC: SED 16:10 → STU 19:17
PROVIDERS: ADMIT Internal Medicine; ATTEND Internal Medicine
DX: F10.129 Alcohol abuse with intoxication, unspecified (principal); E44.1 Mild protein-calorie malnutrition; F32.A Depression, unspecified; M10.9 Gout, unspecified; F41.9 Anxiety disorder, unspecified; Y90.9 Presence of alcohol in blood, level not specified; Z88.5 Allergy status to narcotic agent; Z91.013 Allergy to seafood; Z79.899 Other long term (current) drug therapy; Z68.21 Body mass index [BMI] 21.0-21.9, adult
CPT/HCPCS: 36415; 80053; 85025; 87081; 93005; 99285; G0378; G0480; G0481; G0482; J0696; J2060; J3411; J3475; J3490; J7030; J7040; J7050

== ENCOUNTER 2023-09-01 19:31 | Inpatient (IN) | payer OTHER, MEDICARE ==
[~2023-09-01] VITALS: Ht 180.3 cm; Wt 60.8 kg
[~2023-09-01 19:31] MED LIST changes: +FLUO40CA49 PO; -FLUO60TA PO
[2023-09-01 19:51] VITALS: BP_SYST 146; PULSE 119; RESP 18; TEMP 98; O2SAT 98
[2023-09-01] MEDS ORDERED: NS 1000 ML IV.SOLN IV ONE (20:15)
[2023-09-01] MEDS ORDERED: LORazepam 2 MG/ML VIAL IVP ONE ×2 (20:15→21:45)
[2023-09-01 20:52] LABS: BASOPHILS % (AUTO) 0.6 % (0.0-2.0); EOSINOPHILS % (AUTO) 0.4 % (0.0-4.0); HEMATOCRIT 44.8 % (36-54); HEMOGLOBIN 14.8 g/dL (14.0-18.0); LYMPHOCYTES # (AUTO) 1.5 K/uL (1.0-5.5); LYMPHOCYTES % (AUTO) 18.9 % (20.5-51.5); MEAN CORPUSCULAR HEMOGLOBIN 32 pg (27-31); MEAN CORPUSCULAR HGB CONC 33 % (32-36); MEAN CORPUSCULAR VOLUME 98 fL (79.0-98.0); MONOCYTES # (AUTO) 0.5 K/uL (0.0-1.0); MONOCYTES % (AUTO) 6.2 % (1.7-9.3); NEUTROPHILS # (AUTO) 5.7 K/uL (1.8-7.7); NEUTROPHILS % (AUTO) 73.9 % (40.0-70.0); PLATELET COUNT (AUTO) 215 K/uL (130-430); RED BLOOD CELL COUNT(AUTO) 4.58 MIL/uL (4.2-6.2); RED CELL DISTRIBUTION WIDTH 16.4 % (9.0-15.0); WHITE BLOOD COUNT (AUTO) 7.8 K/uL (4.8-10.8)
[2023-09-01 20:55] LABS: CALCIUM 9.4 mg/dL (8.4-11.0); CREATININE 1.43 mg/dL (0.55-1.30); POTASSIUM 3.1 mmol/L (3.5-5.1)
[2023-09-01 21:13] LABS: ALBUMIN 3.8 g/dL (3.4-4.8); TOTAL BILIRUBIN 1.1 mg/dL (0.0-1.0); TOTAL PROTEIN, SERUM 7.2 g/dL (6.4-8.3)
[2023-09-01 21:41] LABS: ABG O2 SAT% ESTIMATE 96.4 % (94.0-100.0); BLOOD GAS BASE EXCESS -2.5 mmol/L (-3.0-3.0); BLOOD GAS HCO3 19.3 mmol/L (21.0-27.0); BLOOD GAS PCO2 26.7 mmHg (32.0-45.0); BLOOD GAS PH 7.478 (7.350-7.450)
[2023-09-01 21:42] LABS: ACETONE, SERUM NEGATIVE (NEGATIVE)
[2023-09-01] MEDS ORDERED: POTASSIUM CHLORIDE 20 MEQ TAB.PRT.SR PO ONE (21:45)
[2023-09-01] MEDS ORDERED: MAGNESIUM SULFATE 50 ML IV ONE (21:45)
[2023-09-01] MEDS ORDERED: NACL 0.9% 1,000 ML IV ONE (21:45)
[2023-09-01 21:49] LABS: ALCOHOL, BLOOD < 3 mg/dL (<10)
[2023-09-01 21:54] LABS: ALLEN'S TEST YES (P)
[2023-09-01] MEDS ORDERED: THIAMINE HCL 100 MG in NS 50 ML IV ONE (22:00)
[2023-09-01] MEDS ORDERED: THIAMINE HCL 100 MG/ML VIAL ONE ×2 (22:23)
[2023-09-01] MEDS ORDERED: chlordiazePOXIDE HCL 25 MG CAPSULE PO ONE (23:30)
[2023-09-02 01:00] VITALS: BP_SYST 111; PULSE 81; RESP 16; TEMP 98.2
[2023-09-02] MEDS ORDERED: FOLIC ACID 1 MG, THIAMINE HCL 100 MG, MAGNESIUM SULFATE 1 GM, MVI 10 ML in NACL 0.9% 1,... IV SCH (01:00)
[2023-09-02 05:38] LABS: BASOPHILS # (AUTO) 0.1 K/uL (0.0-0.2); BASOPHILS % (AUTO) 0.9 % (0.0-2.0); EOSINOPHILS # (AUTO) 0.1 K/uL (0.0-0.4); EOSINOPHILS % (AUTO) 1.8 % (0.0-4.0); HEMATOCRIT 40.4 % (36-54); HEMOGLOBIN 13.3 g/dL (14.0-18.0); LYMPHOCYTES # (AUTO) 1.7 K/uL (1.0-5.5); MEAN CORPUSCULAR HEMOGLOBIN 32 pg (27-31); MEAN CORPUSCULAR HGB CONC 33 % (32-36); MEAN CORPUSCULAR VOLUME 98 fL (79.0-98.0); MONOCYTES # (AUTO) 0.4 K/uL (0.0-1.0); MONOCYTES % (AUTO) 6.6 % (1.7-9.3); NEUTROPHILS # (AUTO) 3.5 K/uL (1.8-7.7); NEUTROPHILS % (AUTO) 60.7 % (40.0-70.0); PLATELET COUNT (AUTO) 158 K/uL (130-430); RED BLOOD CELL COUNT(AUTO) 4.11 MIL/uL (4.2-6.2); RED CELL DISTRIBUTION WIDTH 16.3 % (9.0-15.0); WHITE BLOOD COUNT (AUTO) 5.8 K/uL (4.8-10.8)
[2023-09-02 05:59] LABS: ALBUMIN 3.2 g/dL (3.4-4.8); CALCIUM 8.2 mg/dL (8.4-11.0); CREATININE 0.73 mg/dL (0.55-1.30); POTASSIUM 3.2 mmol/L (3.5-5.1); TOTAL BILIRUBIN 1.2 mg/dL (0.0-1.0)
[2023-09-02 06:32] LABS: INFLUENZA TYPE A Negative (NEGATIVE); INFLUENZA TYPE B NEGATIVE (NEGATIVE)
[2023-09-02 08:00] VITALS: BP_SYST 121; PULSE 71; RESP 17; TEMP 96.4; O2SAT 100
[2023-09-02] MEDS: chlordiazePOXIDE HCL 10 MG CAPSULE PO SCH ×4 (10:24→21:40)
[2023-09-02] MEDS: NEPHROVITE, (FOLIC ACID/VITAMIN B COMP W-C 1 TAB) PO SCH (10:24)
[2023-09-02] MEDS: THIAMINE HCL 100 MG TABLET PO SCH (10:24)
[2023-09-02] MEDS: cloNIDine HCL 0.1 MG TABLET PO SCH ×3 (10:25→21:00)
[2023-09-02] MEDS: LORazepam 2 MG/ML VIAL IVP PRN ×2 (11:33→18:17)
[2023-09-02] MEDS: THIAMINE HCL 100 MG, MAGNESIUM SULFATE 1 GM in NS 100 ML IV SCH (11:34)
[2023-09-02] MEDS: FOLIC ACID 1 MG, MVI 10 ML in NACL 0.9% 1,000 ML IV SCH (11:35)
[2023-09-02 12:30] VITALS: BP_SYST 117; PULSE 94; RESP 18; TEMP 97.3; O2SAT 97
[2023-09-02] MEDS ORDERED: POTASSIUM CHLORIDE 20 MEQ TAB.PRT.SR PO ONE (13:45)
[2023-09-02 13:55] LABS: BILIRUBIN,URINE NEGATIVE (NEGATIVE); BLOOD, URINE NEGATIVE (NEGATIVE); CLARITY/URINE CLEAR (CLEAR); COLOR,URINE YELLOW (YELLOW); GLUCOSE,URINE NEGATIVE (NEGATIVE); KETONES,URINE NEGATIVE (NEGATIVE); LEUKOCYTE ESTERASE ,URINE NEGATIVE (NEGATIVE); NITRITE, URINE NEGATIVE (NEGATIVE); PROTEIN URINE NEGATIVE (NEGATIVE); UROBILINOGEN,URINE 0.2 (0.2-1.0)
[2023-09-02 14:28] LABS: BARBITURATE, URINE NEGATIVE (NEG <=200); BENZODIAZEPINE, URINE POSITIVE (NEG <=150); CANNABINOID, URINE NEGATIVE (NEG <=50); COCAINE, URINE NEGATIVE (NEG <=150); METHAMPHETAMINES SCREEN,URINE NEGATIVE (NEG <=500); OPIATE, URINE NEGATIVE (NEG <=100); PHENCYCLIDINE SCREEN,URINE NEGATIVE (NEG <=25); UR TRICYCLIC ANTIDEPRESSANTS NEGATIVE (NEG <=300); URINE AMPHETAMINE NEGATIVE (NEG <=500); URINE METHADONE NEGATIVE (NEG <=200); URINE OXYCODONE SCREEN NEGATIVE (NEG <=100); URINE PROPOXYPHENE SCREEN NEGATIVE (NEG <=300)
[2023-09-02] MEDS ORDERED: LOPERAMIDE HCL 2 MG CAPSULE PO PRN (14:45)
[2023-09-02] MEDS ORDERED: DOXYCYCLINE HYCLATE 100 MG CAPSULE PO ONE (15:00)
[2023-09-02 16:30] VITALS: BP_SYST 125; PULSE 85; RESP 17; TEMP 98.1; O2SAT 98
[2023-09-02] MEDS: LIPASE/PROTEASE/AMYLASE 1 CAP PO SCH (17:20)
[2023-09-02 21:00] VITALS: BP_SYST 98; PULSE 81; RESP 20; TEMP 97.8; O2SAT 96
[2023-09-02 21:30] VITALS: O2SAT 96
[2023-09-02] MEDS: DOXYCYCLINE HYCLATE 100 MG CAPSULE PO SCH (21:40)
[2023-09-02] MEDS: POTASSIUM CHLORIDE 20 MEQ TAB.PRT.SR PO SCH (21:40)
[2023-09-03] VITALS: BP_SYST 99; PULSE 76; RESP 18; TEMP 97.4; O2SAT 97
[2023-09-03 05:44] LABS: BASOPHILS # (AUTO) 0.1 K/uL (0.0-0.2); BASOPHILS % (AUTO) 0.8 % (0.0-2.0); EOSINOPHILS # (AUTO) 0.3 K/uL (0.0-0.4); EOSINOPHILS % (AUTO) 4.1 % (0.0-4.0); HEMATOCRIT 38.3 % (36-54); HEMOGLOBIN 12.4 g/dL (14.0-18.0); LYMPHOCYTES # (AUTO) 1.7 K/uL (1.0-5.5); LYMPHOCYTES % (AUTO) 27.8 % (20.5-51.5); MEAN CORPUSCULAR HEMOGLOBIN 32 pg (27-31); MEAN CORPUSCULAR HGB CONC 32 % (32-36); MEAN CORPUSCULAR VOLUME 99 fL (79.0-98.0); MONOCYTES # (AUTO) 0.3 K/uL (0.0-1.0); MONOCYTES % (AUTO) 5.5 % (1.7-9.3); NEUTROPHILS # (AUTO) 3.8 K/uL (1.8-7.7); NEUTROPHILS % (AUTO) 61.8 % (40.0-70.0); PLATELET COUNT (AUTO) 129 K/uL (130-430); RED BLOOD CELL COUNT(AUTO) 3.87 MIL/uL (4.2-6.2); RED CELL DISTRIBUTION WIDTH 16.4 % (9.0-15.0); WHITE BLOOD COUNT (AUTO) 6.2 K/uL (4.8-10.8)
[2023-09-03 06:58] LABS: ALBUMIN 2.8 g/dL (3.4-4.8); CALCIUM 8.4 mg/dL (8.4-11.0); CREATININE 0.72 mg/dL (0.55-1.30); POTASSIUM 3.7 mmol/L (3.5-5.1); TOTAL BILIRUBIN 0.7 mg/dL (0.0-1.0); TOTAL PROTEIN, SERUM 5.6 g/dL (6.4-8.3)
[2023-09-03 08:35] VITALS: O2SAT 99
[2023-09-03] MEDS: THIAMINE HCL 100 MG TABLET PO SCH (09:31)
[2023-09-03] MEDS: chlordiazePOXIDE HCL 10 MG CAPSULE PO SCH ×4 (09:32→20:59)
[2023-09-03] MEDS: POTASSIUM CHLORIDE 20 MEQ TAB.PRT.SR PO SCH ×2 (09:32→20:51)
[2023-09-03] MEDS: DOXYCYCLINE HYCLATE 100 MG CAPSULE PO SCH ×2 (09:33→20:58)
[2023-09-03] MEDS: cloNIDine HCL 0.1 MG TABLET PO SCH ×3 (09:33→20:51)
[2023-09-03] MEDS: LIPASE/PROTEASE/AMYLASE 1 CAP PO SCH ×3 (09:40→19:03)
[2023-09-03] MEDS: NEPHROVITE, (FOLIC ACID/VITAMIN B COMP W-C 1 TAB) PO SCH (09:44)
[2023-09-03] MEDS: FOLIC ACID 1 MG, MVI 10 ML in NACL 0.9% 1,000 ML IV SCH (11:31)
[2023-09-03] MEDS: LORazepam 2 MG/ML VIAL IVP PRN (11:32)
[2023-09-03] MEDS: THIAMINE HCL 100 MG, MAGNESIUM SULFATE 1 GM in NS 100 ML IV SCH (11:36)
[2023-09-03 12:20] VITALS: BP_SYST 104; PULSE 75; RESP 18; TEMP 98.8; O2SAT 97
[2023-09-03] MEDS ORDERED: MENTHOL/ZINC OXIDE 113 GM OINT. TP ONE (17:00)
[2023-09-03 17:53] VITALS: BP_SYST 122; PULSE 78; RESP 17; TEMP 96.8; O2SAT 97
[2023-09-03 20:00] VITALS: BP_SYST 98; PULSE 82; RESP 17; TEMP 97.7; O2SAT 96
[2023-09-04] VITALS: BP_SYST 101; RESP 18; TEMP 98.6; O2SAT 95
[2023-09-04 02:00] VITALS: O2SAT 96
[2023-09-04] MEDS: LORazepam 2 MG/ML VIAL IVP PRN ×2 (06:10→14:25)
[2023-09-04 08:00] VITALS: BP_SYST 124; PULSE 74; RESP 18; TEMP 98.8; O2SAT 96; O2SAT 98
[2023-09-04] MEDS ORDERED: MENTHOL/ZINC OXIDE 113 GM OINT. TP SCH (09:00)
[2023-09-04] MEDS: NEPHROVITE, (FOLIC ACID/VITAMIN B COMP W-C 1 TAB) PO SCH (10:12)
[2023-09-04] MEDS: DOXYCYCLINE HYCLATE 100 MG CAPSULE PO SCH (10:12)
[2023-09-04] MEDS: POTASSIUM CHLORIDE 20 MEQ TAB.PRT.SR PO SCH (10:12)
[2023-09-04] MEDS: cloNIDine HCL 0.1 MG TABLET PO SCH ×2 (10:12→15:00)
[2023-09-04] MEDS: THIAMINE HCL 100 MG TABLET PO SCH (10:12)
[2023-09-04 12:00] VITALS: BP_SYST 122; PULSE 76; RESP 18; TEMP 98.6; O2SAT 98
[2023-09-04] MEDS: LIPASE/PROTEASE/AMYLASE 1 CAP PO SCH ×3 (12:00→18:06)
[2023-09-04] MEDS: chlordiazePOXIDE HCL 25 MG CAPSULE PO SCH ×2 (13:37→17:33)
[2023-09-04 16:00] VITALS: BP_SYST 138; PULSE 68; RESP 18; TEMP 98.2; O2SAT 96
[2023-09-04] MEDS: FOLIC ACID 1 MG, MVI 10 ML in NACL 0.9% 1,000 ML IV SCH (17:08)
[2023-09-04 17:37] VITALS: BP_SYST 122; PULSE 74; RESP 18; TEMP 98.4; O2SAT 98
== END 2023-09-04 19:51 | disposition home or self-care (01) | DRG 438 ==
LOC: SED 19:31 → STU 23:26
PROVIDERS: ADMIT Internal Medicine; ATTEND Internal Medicine
DX: K86.89 Other specified diseases of pancreas (principal); N17.0 Acute kidney failure with tubular necrosis; E87.20 Acidosis, unspecified; F10.239 Alcohol dependence with withdrawal, unspecified; E44.1 Mild protein-calorie malnutrition; Z68.1 Body mass index [BMI] 19.9 or less, adult; E86.0 Dehydration; E87.6 Hypokalemia; Z20.822 Contact with and (suspected) exposure to COVID-19; Z88.5 Allergy status to narcotic agent; Z91.013 Allergy to seafood; Z79.899 Other long term (current) drug therapy
CPT/HCPCS: 36415; 36600; 71045; 80053; 80307; 81003; 82009; 82803; 83605; 85025; 85610-TC; 85730-TC; 87040; 87045-TC; 87086; 89055; 93005; 99285; G0378; G0482; J2060; J3411; J3475; J3490; J7030

== ENCOUNTER 2024-02-07 19:02 | Emergency (ER) | payer OTHER, MEDICARE ==
[~2024-02-07] VITALS: Ht 172.7 cm; Wt 65.8 kg
[2024-02-07 19:18] VITALS: BP_SYST 132; PULSE 95; RESP 20; TEMP 98.1; O2SAT 95
[2024-02-07 20:09] LABS: BASOPHILS # (AUTO) 0.1 K/uL (0.0-0.2); BASOPHILS % (AUTO) 0.8 % (0.0-2.0); EOSINOPHILS # (AUTO) 0.2 K/uL (0.0-0.4); EOSINOPHILS % (AUTO) 2.2 % (0.0-4.0); HEMATOCRIT 39.8 % (36-54); HEMOGLOBIN 13.9 g/dL (14.0-18.0); LYMPHOCYTES # (AUTO) 3.4 K/uL (1.0-5.5); LYMPHOCYTES % (AUTO) 43.5 % (20.5-51.5); MEAN CORPUSCULAR HEMOGLOBIN 35 pg (27-31); MEAN CORPUSCULAR HGB CONC 35 % (32-36); MEAN CORPUSCULAR VOLUME 101 fL (79.0-98.0); MONOCYTES # (AUTO) 0.6 K/uL (0.0-1.0); NEUTROPHILS # (AUTO) 3.5 K/uL (1.8-7.7); NEUTROPHILS % (AUTO) 45.5 % (40.0-70.0); PLATELET COUNT (AUTO) 169 K/uL (130-430); RED BLOOD CELL COUNT(AUTO) 3.96 MIL/uL (4.2-6.2); RED CELL DISTRIBUTION WIDTH 14.7 % (9.0-15.0); WHITE BLOOD COUNT (AUTO) 7.7 K/uL (4.8-10.8)
[2024-02-07 20:42] LABS: ALBUMIN 3.5 g/dL (3.4-4.8); CALCIUM 8.4 mg/dL (8.4-11.0); CREATININE 0.92 mg/dL (0.55-1.30); TOTAL BILIRUBIN 0.6 mg/dL (0.0-1.0); TOTAL PROTEIN, SERUM 6.9 g/dL (6.4-8.3)
[2024-02-07 20:50] LABS: POTASSIUM 2.9 mmol/L (3.5-5.1)
[2024-02-07] MEDS ORDERED: LORA-259 PO (21:39)
[2024-02-07] MEDS ORDERED: MAGNESIUM OXIDE 400 MG TABLET ONE (22:05)
[2024-02-07] MEDS: POTASSIUM CHLORIDE 20 MEQ TABLET.ER PO ONE (22:06)
[2024-02-07] MEDS: NACL 0.9% 2,000 ML IV ONE (22:16)
[2024-02-07] MEDS: MAGNESIUM OXIDE 400 MG TABLET PO ONE (22:26)
[2024-02-08 01:15] VITALS: BP_SYST 126; PULSE 103; RESP 18; TEMP 98; O2SAT 95
== END 2024-02-08 01:15 | disposition home or self-care (01) ==
LOC: SED 19:02
DX: F10.129 Alcohol abuse with intoxication, unspecified (principal); E87.6 Hypokalemia; Z91.013 Allergy to seafood; Z79.899 Other long term (current) drug therapy; Y90.6 Blood alcohol level of 120-199 mg/100 ml
CPT/HCPCS: 99283; 96360; 80053; 85025; 36415; J7030

== ENCOUNTER 2024-02-26 20:59 | Emergency (ER) | payer OTHER, MEDICARE ==
[~2024-02-26] VITALS: Ht 172.7 cm; Wt 63.5 kg
[~2024-02-26 20:59] MED LIST changes: +LORA-259 PO
[2024-02-26 21:08] VITALS: BP_SYST 136; PULSE 108; RESP 20; TEMP 98.9; O2SAT 97
[2024-02-26] MEDS ORDERED: MAGNESIUM SULFATE 1 GM/2 ML VIAL ONE (21:23)
[2024-02-26] MEDS ORDERED: FOLIC ACID 5 MG/ML VIAL IV ONE (21:23)
[2024-02-26] MEDS ORDERED: THIAMINE HCL 200 MG/2 ML VIAL ONE (21:23)
[2024-02-26] MEDS ORDERED: MVI 10 ML VIAL IV ONE (21:23)
[2024-02-26 21:31] LABS: BASOPHILS # (AUTO) 0.1 K/uL (0.0-0.2); BASOPHILS % (AUTO) 1.2 % (0.0-2.0); EOSINOPHILS % (AUTO) 0.3 % (0.0-4.0); HEMATOCRIT 36.5 % (36-54); HEMOGLOBIN 12.6 g/dL (14.0-18.0); LYMPHOCYTES # (AUTO) 1.5 K/uL (1.0-5.5); LYMPHOCYTES % (AUTO) 22.7 % (20.5-51.5); MEAN CORPUSCULAR HEMOGLOBIN 35 pg (27-31); MEAN CORPUSCULAR HGB CONC 34 % (32-36); MEAN CORPUSCULAR VOLUME 101 fL (79.0-98.0); MONOCYTES # (AUTO) 0.9 K/uL (0.0-1.0); MONOCYTES % (AUTO) 14.1 % (1.7-9.3); NEUTROPHILS # (AUTO) 4.1 K/uL (1.8-7.7); NEUTROPHILS % (AUTO) 61.7 % (40.0-70.0); PLATELET COUNT (AUTO) 174 K/uL (130-430); RED BLOOD CELL COUNT(AUTO) 3.61 MIL/uL (4.2-6.2); RED CELL DISTRIBUTION WIDTH 15.7 % (9.0-15.0); WHITE BLOOD COUNT (AUTO) 6.6 K/uL (4.8-10.8)
[2024-02-26 21:41] LABS: CALCIUM 8.7 mg/dL (8.4-11.0); CREATININE 1.02 mg/dL (0.55-1.30); POTASSIUM 4.4 mmol/L (3.5-5.1)
[2024-02-26 21:45] LABS: ALBUMIN 3.7 g/dL (3.4-4.8); BILIRUBIN,DIRECT 0.3 mg/dL (0.0-0.3); TOTAL BILIRUBIN 0.9 mg/dL (0.0-1.0); TOTAL PROTEIN, SERUM 6.8 g/dL (6.4-8.3)
[2024-02-26] MEDS: LORazepam 2 MG/ML VIAL IVP ONE (21:55)
[2024-02-26] MEDS: FOLIC ACID 1 MG, THIAMINE HCL 100 MG, MAGNESIUM SULFATE 1 GM, MVI 10 ML in NACL 0.9% 1,... IV ONE (21:56)
[2024-02-27 02:53] LABS: BARBITURATE, URINE NEGATIVE (NEG <=200); BENZODIAZEPINE, URINE POSITIVE (NEG <=150); CANNABINOID, URINE NEGATIVE (NEG <=50); COCAINE, URINE NEGATIVE (NEG <=150); METHAMPHETAMINES SCREEN,URINE NEGATIVE (NEG <=500); OPIATE, URINE NEGATIVE (NEG <=100); PHENCYCLIDINE SCREEN,URINE NEGATIVE (NEG <=25); URINE AMPHETAMINE NEGATIVE (NEG <=500); URINE METHADONE NEGATIVE (NEG <=200); URINE OXYCODONE SCREEN NEGATIVE (NEG <=100)
[2024-02-27 02:54] LABS: UR TRICYCLIC ANTIDEPRESSANTS NEGATIVE (NEG <=300)
[2024-02-27 04:38] VITALS: O2SAT 98
[2024-02-27 04:40] VITALS: BP_SYST 130; PULSE 89; RESP 18; TEMP 98
== END 2024-02-27 04:28 | disposition home or self-care (01) ==
LOC: SED 20:59
DX: E86.0 Dehydration (principal); F10.20 Alcohol dependence, uncomplicated; R11.2 Nausea with vomiting, unspecified; Z91.013 Allergy to seafood; Z79.899 Other long term (current) drug therapy; Y90.6 Blood alcohol level of 120-199 mg/100 ml
CPT/HCPCS: 99284; 96365; 96375; 80307; 80076; 80048; 83690; 85025; 36415; J3490; J2060; J3475; J3411